=== PATIENT | female | born 1965 | race Caucasian/White ===

== ENCOUNTER 2018-07-30 10:41 | Emergency (ER) | payer MEDICAID, SELFPAY ==
[2018-07-30 10:44] VITALS: BP 165/81; PULSE 78; RESP 16; TEMP 36.4; O2SAT 99; BMI 23.6
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
--- NOTE | 2018-07-30 11:22 | RAD_ITS ---
STUDY: X-RAY - RIGHT KNEE REASON FOR EXAM: Female, 53 years old. Chronic pain. History of blood. TECHNIQUE: 4 view(s) of the knee. COMPARISON: Comparison is made with prior study May 03, 2017. FINDINGS: Degenerative changes with spurring of the lateral femoral condyle. Degenerative spurring along the anterior aspect of the distal femur. Spurring of the lateral tibial plateau. Normal proximal tibiofibular articulation. Normal medial femorotibial compartment. There is severe degenerative arthrosis of the lateral femorotibial compartment with severe joint space narrowing. There is severe degenerative arthrosis of the patellofemoral articulation. The patella is surgically absent. Moderate sized joint effusion. RAD/Knee 4 or More Views IMPRESSION: Degenerative arthrosis. Joint effusion. Electronically Signed: Waldemar Arce, at 12:36 EDT , Service support ,
[2018-07-30 12:28] VITALS: BP 108/74; PULSE 62; RESP 15; O2SAT 98
== END 2018-07-30 12:29 | disposition home or self-care (01) ==
PROVIDERS: Emergency Provider Emergency Medicine
DX: M17.11 Unilateral primary osteoarthritis, right knee (principal); G89.29 Other chronic pain; K21.9 Gastro-esophageal reflux disease without esophagitis; Z87.891 Personal history of nicotine dependence
CPT/HCPCS: 73564; 99282

== ENCOUNTER 2018-09-15 13:36 | Emergency (ER) | payer MEDICAID, SELFPAY ==
[2018-08-15 12:27] VITALS: BMI 23.6
[2018-09-15 13:38] VITALS: BP 142/88; PULSE 102; RESP 18; TEMP 36.6; O2SAT 97; BMI 22.8
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
[2018-09-15 15:36] VITALS: BP 143/89; PULSE 99; RESP 17
== END 2018-09-15 15:42 | disposition home or self-care (01) ==
PROVIDERS: Emergency Provider Emergency Medicine
DX: M25.561 Pain in right knee (principal); G89.29 Other chronic pain; K21.9 Gastro-esophageal reflux disease without esophagitis; Z79.899 Other long term (current) drug therapy
CPT/HCPCS: 99282

== ENCOUNTER 2018-10-06 08:40 | Inpatient (IN) | payer MEDICAID, SELFPAY ==
[2018-10-06 08:41] VITALS: BP 144/102; PULSE 111; RESP 18; TEMP 36.1; O2SAT 94; BMI 21.9
--- NOTE | 2018-10-06 09:25 | ED.DCSUM_ITS ---
- ER Visit Summary Date of Service: 10/06/18 Chief Complaint: Alcohol withdrawal History of Present Illness: The patient is a 53 F who states that she is an alcoholic. She reports drinking at least a sixpack to 12 pack of beer per day. She is been doing this for 3 years. States she was last sober 3 years ago when she stayed at a snf house for 3 months. She states that she is tired of feeling ill. Her last drink was last evening at approximately 2000 hours. Patient states this morning she had vomiting and nausea headache shakes fast heartbeat and anxiety. She denies any hallucinations either auditory or visual. She feels itchy. Patient cannot really identify any one particular reason that made her seek detox today other than she is tired of feeling poorly. She denies any street drugs. Physical Examination: Afebrile vital signs are stable noted heart rate of 111 Gen: Well-nourished well-developed Head: Normocephalic atraumatic Eyes: Perrl EOMI ENT: TMs clear no rhinorrhea moist mucous membranes Neck: Supple no lymphadenopathy no JVD nontender CVS: Regular rate tachycardic rhythm no murmurs normal S1-S2 Respiratory: No distress clear to auscultation bilaterally chest nontender Abdomen: Soft nontender nondistended normal bowel sounds no masses Back: Nontender Extremity: Nontender no edema Skin: Normal color no rash Neuro: alert orientated ?3 CN II-XII intact normal strength sensation reflexes gait cerebellar patient has a tremor Psych: Tearful at times denies suicidal ideation Emergency Department Course and Treatment: Patient's CIWA-Ar score was 25. I discussed the patient with [facility] who began to see the patient in the emergency department. They find the patient appropriate for the program. Dr. Santa from the hospital service will be admitting. Impression: 1. Acute alcohol withdrawal This note was generated with [employer] dictation software. It may contain incorrect words, spelling, and punctuation that were not noted in review of the chart prior to signing ED Disposition - Plan for ED Patient: Referrals: Jennifer Addison MD [Primary Care Provider] -
--- NOTE | 2018-10-06 10:03 | NURSING ---
DR VEGA FOR DR QUEZADA
--- NOTE | 2018-10-06 10:04 | HP.PCM_ITS ---
Problem List (1) Alcohol withdrawal delirium, acute, mixed level of activity Status: Acute (2) Tobacco use Status: Chronic (3) Brain aneurysm Status: Chronic (4) ETOH abuse Status: Chronic History of Present Illness Date of Admission: 10/06/18 Chief Complaint: Acute EtOH Withdrawal The patient is a 53 y/o F w/ PMHx: GERD, Tobacco use, Hx Brain aneurysm s/p clipping (not MRI compatible), EtOH Abuse who presents to the [facility] on 10/06/18 w/ noted acute EtOH withdrawal, onset starting 10/06/18 following last EtOH intake ~8 pm the evening prior w/ normal intake 6-12 beers at least daily with onset of nausea, tremors, agitation, tactile disturbances. She notes that she has never willingly transitioned to an acute rehabilitation program until this presentation. Patient interested in attaining sober status. Patient also notes recent 1 to 2 weeks of postnasal drip, congestion, some mild rhinorrhea and throat irritation without fever or chills associated. upon ED presentation work- up included CIWA 25, tremors evident, tachycardic, nauseated with tactile hallucinations per discussion with patient. No regimen nor labs obtained in the ED, discussed regimen with ED physician with planned librium taper upon transition to [place]. Past Medical History Past Medical History (Chronic Problems): Chronic Problems Tobacco use (Chronic) Brain aneurysm (Chronic) ETOH abuse (Chronic) Allergies ibuprofen Adverse Reaction (Verified 10/06/18 08:44) BAD STOMACH STATES I'M NOT SUPPOSED TO TAKE IT Home Medications: Ambulatory Orders Medication Instructions Recorded Multivitamin/Iron/Folic Acid 1 tab PO DAILY 10/06/18 [Centrum Women Tablet] Pantoprazole Sodium [Protonix] 40 mg PO DAILY 10/06/18 Surgical History: - - Brain aneurysm clipping, ventral hernia repair, several right knee surgeries. Psychiatric History: No pertinent psych hx ORGANIZATIONAL CONSULTANT History: No pertinent ORGANIZATIONAL CONSULTANT history Lives: Roommate Smoking Status: Current every day smoker - 1 pack/day cigarette tobacco usage. Tobacco Use: Cigarettes Alcohol: Heavy - At least 6 to 12 pack/day beer, denies liquor, denies any concurrent illicit other drug usage. Drugs: None - *Family History Maternal History Items: - - Patient notes a maternal family history of colon cancer. Paternal History Items: - - Patient notes a paternal family history of heart disease. Review of Systems Constitutional: Reports: Anorexia, Malaise, Weakness, Fatigue. Denies: Chills, Fever, Weight Change HEENT: Reports: Post Nasal Drip, Sinus Congestion, Sinus Drainage, Sore Throat. Denies: Head Aches Cardiovascular: Denies: Chest Pain, Palpitations Respiratory: Denies: Cough, Shortness of breath at rest, Sputum production Gastrointestinal: Denies: Abdominal Pain, Nausea, Vomiting Genitourinary: Denies: Dysuria Musculoskeletal: Reports: Back Pain, Joint Pain. Denies: Joint Tenderness Skin: Denies: Rash, Wounds Neurological: Reports: Tremor, - - Tactile hallucinations.. Denies: Focal weakness, Numbness, Tingling Psychiatric: Denies: Anxiety, Depression, Homicidal Ideations, Suicidal Ideations Hematologic/ Lymphatic: Denies: Easy Bruising, Easy Bleeding VTE Information - Inpt Only VTE Present on Admission: No VTE Mechan Device Prophylaxis: SCD's VTE Pharm Prophylaxis ordered?: Yes Patient Problems: Active and Suspected Problems Alcohol withdrawal delirium, acute, mixed level of activity (Acute) Subjective: Seated upright in the bed, fatigued appearance, tremors evident, mildly agitated. Objective: Physical Examination: General: awake, alert, oriented x 3/4, remains cooperative, seated upright in in the bed, tremors evident, mildly agitated, awaiting Librium taper initiation. Skin: normal color, turgor, no icterus, cyanosis. HEENT: AT/NC, EOMI, PERRLA, dry MM, no carotid bruits or JVD noted, posterior OP with mild erythema, no exudated, not post-nasal drip. Lungs: CTA bilaterally, moderate effort, moderate decrease BL bases, no rales, ronchi or wheezing. Heart: Mildly tachycardic with regular rhythm; no gallop, rub audible. Abdomen: soft, NTTP, ND, normal BS, + HM. Extremities: no cyanosis, clubbing, or edema. Neurological: patient awake, alert, oriented as noted; cognitive function suspect mildly reduced from baseline; pupils equally reactive to light and accomodation; cranial nerves II-XII grossly normal, moving all 4 extremities, no focal deficits, strength moderately to severely global decrease secondary to acute alcohol withdrawal presentation, tremors evident. Psychiatric: affect appears mildly agitated, no acute evidence of depressive or anxiety feelings. - Physical Exam Vital Signs Temp Pulse Resp BP Pulse Ox 97.0 F L 111 H 18 144/102 H 94 10/06/18 08:41 10/06/18 08:41 10/06/18 08:41 10/06/18 08:41 10/06/18 08:41 Oxygen Delivery Method Room Air Weight: 144 lb 2.917 oz Body Mass Index (BMI) 21.9 Assessment/Plan All Active Problems Alcohol withdrawal delirium, acute, mixed level of activity (Acute) The patient is a 53 y/o F w/ PMHx: GERD, Tobacco use, Hx Brain aneurysm s/p clipping, EtOH Abuse who presents to the [facility] on 10/06/18 w/ noted acute EtOH withdrawal, onset starting 10/06/18 following last EtOH intake ~8 pm the evening prior. (1) Acute EtOH Withdrawal: Will admit to [facility] on telemetry, obtain routine labs including CBC, CMP, urine for drug screen, EtOH level, will initiate and continue on [facility] service protocol with taper course of librium, as needed Catapres, Bentyl, Vistaril, IV fluids, IV antiemetics, Tylenol as needed for pain. Once patient clinically improved and completion of taper nearing will plan [facility] assistance for transition to next level of rehabilitation care. Mag, phos pending. Maintain on CIWA protocol. (2) Mild URI, Possible Allergic Rhinitis w/ Post-nasal drip: Notes congestion, mild rhinorrhea and congestion with post-nasal drip, will add ocean nasal spray, claritin and flonase. (3) Tobacco Abuse: Encouraged cessation, inpatient consultation per RT, NR if desired. (4) Hx Brain aneurysm: s/p clipping, not MRI compatible. (5) GERD: PPI. (6) DVT Prophylaxis: SCDs, lovenox. Code Visit Inpatient E&M: 94570 Init Hosp L3
--- NOTE | 2018-10-06 10:09 | NURSING ---
314 ALCOHOL WITHDRAWAL WHITE
[2018-10-06 11:10] VITALS: BP 116/78; PULSE 89; RESP 16; RESP 18; TEMP 37.1; O2SAT 99; BMI 21.5
[2018-10-06] MEDS: Methocarbamol 750 MG Tablet PO ×2 (11:27→18:31)
[2018-10-06] MEDS: Loratadine 10 MG Tablet PO (11:27)
[2018-10-06] MEDS: chlordiazePOXIDE 25 MG Capsule PO ×3 (11:27→23:04)
[2018-10-06] MEDS: hydrOXYzine PAM 25 MG Capsule 50 MG PO ×2 (11:28→18:31)
[2018-10-06] MEDS: Lactated Ringers 1,000 ML 125 ML IV (11:42)
[2018-10-06 11:43] LABS: Absolute Lymphocyte Count 1.36 X10^3/ul (0.83-4.51); Absolute Neutrophil Count 3.9 X10^3/uL (2.0-7.7); Basophil# 0.01 X10^3/uL; Basophil% 0.2 % (0-1); Eosinophil# 0.01 X10^3/uL; Eosinophils% 0.2 % (0-5); Hematocrit 42.5 % (37-47); Hemoglobin 14.8 g/dl (12.0-15.0); International Normalized Ratio 0.9; Lymphocyte # 1.36 X10^3/ul (4.0); Lymphocyte % 22.7 % (19-41); Mean Corp Hgb Conc 34.8 g/gl (32-36); Mean Corpuscular Hgb 34.3 pg (27.0-32.0); Mean Corpuscular Volume 98.6 fL (81-99); Mean Platelet Vol. 10.2 fl (6.2-12.0); Monocyte# 0.66 X10^3/uL; Neutrophil # 3.94 X10^3/uL (2.7-7.7); Neutrophil % 65.9 % (47-70); Platelet Count 214 K/mm3 (150-450); Prothrombin Time (Protime)PT. 12.3 SECONDS (11.7-14.9); RBC Distribution Width CV 14.5 % (11.6-14.6); RBC Distribution Width SD 52.4 fl (35.1-43.9); Red Blood Count 4.31 M/mm3 (4.2-5.4)
[2018-10-06 11:45] LABS: POSITIVE COUNT NO; POSITIVE DIFFERENTIAL NO; POSITIVE MORPHOLOGY NO
[2018-10-06 11:50] LABS: Internal QC Validated? YES +Cl - CLEAR BKGD; Pregnancy, Serum, hCG Quali. NEGATIVE Negative
[2018-10-06 11:52] LABS: AST(SGOT) 28 U/L (15-37); Alanine Aminotransfer ALT/SGPT 18 U/L (13-56); Albumin, Serum 3.9 g/dL (3.2-5.0); Alkaline Phosphatase 81 U/L (45-117); Anion Gap 8 (5-15); BUN 5 mg/dL (7-18); BUN/Creat Ratio 8.8 RATIO (10-20); Calcium,Total 9.2 mg/dL (8.5-10.1); Chloride 104 mmol/L (98-107); Creatinine, Serum 0.57 mg/dL (0.55-1.02); EST Glomerular Filtration Rate 118 mL/min (>60); Est Glom Filt Rate - Afr Amer 142 mL/min (>60); Estimated Creatinine Clearance 113.82 ml/min; Globulin 3.8 g/dL (2.2-4.2); Glucose 85 mg/dL (74-106); Lipase 124 U/L (73-393); Magnesium 1.8 mg/dL (1.6-2.6); Phosphorus 3.3 mg/dL (2.5-4.9); Protein, Total 7.7 g/dL (6.4-8.2); Sodium Level 138 mmol/L (136-145)
[2018-10-06 12:01] LABS: Bedside Glucose 136 mg/dL (70-110)
[2018-10-06] MEDS: Sodium Chloride 0.65% 1 SPRAY SPRAY.BTL 2 SPRAY NASAL ×2 (13:33→21:45)
[2018-10-06] MEDS: Fluticasone 0.05% 1 SPRAY NASAL.SRY NASAL ×2 (13:35→21:45)
[2018-10-06] MEDS: LORazepam 2 MG/ML Syringe 1 MG IV (13:41)
[2018-10-06 14:41] LABS: Amphetamine Urine VISTA NEGATIVE (<1000 ng/mL); Barbiturate Urine VISTA NEGATIVE (< 200 ng/mL); Benzodiazepine Urine VISTA NEGATIVE (< 200 ng/mL); Cocaine Urine VISTA NEGATIVE (< 300 ng/mL); Ecstacy Urine VISTA NEGATIVE (< 500 ng/mL); Methadone Urine VISTA NEGATIVE (< 300 ng/mL); PCP Urine VISTA NEGATIVE (< 25 ng/mL); THC Urine VISTA NEGATIVE (< 50 ng/mL); Vista UDS pH Range 6
[2018-10-06 15:40] VITALS: BP 118/74; PULSE 106; RESP 18; TEMP 37.1
[2018-10-06] MEDS: Loperamide 2 MG Capsule PO (15:44)
[2018-10-06] MEDS: Ondansetron ODT 4 MG Tablet PO ×2 (15:44→21:48)
[2018-10-06] MEDS: Dicyclomine 10 MG Capsule 20 MG PO (15:45)
[2018-10-06] MEDS: Acetaminophen 500 MG Tablet PO ×2 (15:45→20:02)
--- NOTE | 2018-10-06 16:29 | CHAPLAIN ---
Type of Pastoral Visit _x__ Initial Visit ___ Follow-up Visit ___ On-call Visit ___ General Patient Visit ___ Spiritual Assessment ___ Family Conference ___ Bereavement ___ Rapid Response ___ Code Blue ___ Other (describe below) Pastoral Care Referral From _x__ Patient ___ Family ___ Nurse ___ Physician ___ Automatic Die Cutting Machine Operator ___ Clutch Operator ___ Other (describe below) Sacrament/Intervention _x__ Active listening ___ Anointing ___ Orthodox ___ Bereavement ___ Communion ___ Emy exploration ___ ___ Life review _x__ Prayer ___ Reconciliation ___ Sacrament of Sick ___ Supportive presence ___ Wedding ___ Other (describe below) Pastoral Comments
[2018-10-06 21:39] VITALS: BP 114/69; PULSE 85; RESP 18; TEMP 37; O2SAT 97
[2018-10-06] MEDS: traZODone 50 MG Tablet PO (21:45)
[2018-10-07 02:01] VITALS: BP 125/80; PULSE 73; RESP 14; TEMP 36.7
[2018-10-07 05:20] VITALS: BP 117/80; PULSE 82; RESP 18; TEMP 36.6
[2018-10-07] MEDS: chlordiazePOXIDE 25 MG Capsule PO ×3 (05:26→20:51)
[2018-10-07] MEDS: Methocarbamol 750 MG Tablet PO ×3 (05:26→23:59)
[2018-10-07] MEDS: Acetaminophen 500 MG Tablet PO (05:27)
[2018-10-07] MEDS: Ondansetron ODT 4 MG Tablet PO (05:27)
[2018-10-07 09:05] VITALS: BP 109/71; PULSE 85; RESP 18; TEMP 36.6
[2018-10-07] MEDS: Enoxaparin 40 MG/0.4 ML Syringe SC (09:08)
[2018-10-07] MEDS: Pantoprazole Sodium 40 MG Tablet PO (09:08)
[2018-10-07] MEDS: Loratadine 10 MG Tablet PO (09:08)
[2018-10-07] MEDS: Folic Acid 1 MG Tablet PO (09:08)
[2018-10-07] MEDS: Multivitamins,Therapeutic Tablet 1 TABLET PO (09:08)
[2018-10-07] MEDS: Thiamine Hydrochloride 100 MG Tablet PO (09:08)
[2018-10-07] MEDS: Sodium Chloride 0.65% 1 SPRAY SPRAY.BTL 2 SPRAY NASAL ×2 (09:09→22:34)
[2018-10-07] MEDS: Fluticasone 0.05% 1 SPRAY NASAL.SRY NASAL ×2 (09:09→22:35)
[2018-10-07] MEDS: Ibuprofen 600 MG Tablet PO ×2 (09:12→20:51)
[2018-10-07] MEDS: hydrOXYzine PAM 25 MG Capsule 50 MG PO ×3 (09:12→23:59)
[2018-10-07] MEDS: 0.9% NaCl Peripheral Flush Adult/Peds IV ×3 (09:13→17:29)
--- NOTE | 2018-10-07 10:07 | PCM.PN.HOSP ---
Patient Problems: Active and Suspected Problems Alcohol withdrawal delirium, acute, mixed level of activity (Acute) Subjective: Patient notes that she is improved as far as alcohol withdrawal symptoms with no further tremors, improved energy, no hallucinations. She does state that her lower back has been hurting worse over the last day and she does have chronic back issues but is attempted to be up and walking and has not had relief with Tylenol or ibuprofen. Discussed options and amenable to Toradol trial. Patient denies fevers, chills, nausea, emesis, abdominal pain, chest pain or dyspnea. Objective: Physical Examination: General: awake, alert, oriented x 4, cooperative, seated upright in in the bed, improved appearance from day prior, no tremors, calm. Skin: normal color, turgor, no icterus, cyanosis. HEENT: AT/NC, EOMI, PERRLA, improved MMM, less congested sounding, notes some improvement to URI type symptoms. Lungs: CTA bilaterally, moderate effort, moderate decrease BL bases, no rales, ronchi or wheezing. Heart: Regular rate with regular rhythm; no gallop, rub audible. Abdomen: soft, NTTP, ND, normal BS. Extremities: no cyanosis, clubbing, or edema, despite lumbar back discomfort, moving with ease. Neurological: patient awake, alert, oriented as noted; cognitive function improved, suspect now baseline; pupils equally reactive to light and accomodation; cranial nerves II-XII grossly normal, moving all 4 extremities, no focal deficits, strength improved, mildly to moderately global decrease secondary to acute alcohol withdrawal presentation. Psychiatric: affect appears improved, normal, no acute evidence of depressive or anxiety feelings. Vitals/I&O's: Vital Signs Temp Pulse Resp BP Pulse Ox 97.8 F 85 18 109/71 97 10/07/18 09:05 10/07/18 09:05 10/07/18 09:05 10/07/18 09:05 10/06/18 21:39 Oxygen Delivery Method Room Air Weight: 141 lb 12.116 oz Body Mass Index (BMI) 21.5 Intake and Output for Last 24 Hours 10/05/18 10/06/18 10/07/18 23:59 23:59 23:59 Intake Total 1212 / 1212 1554 / 1554 Balance 1212 / 1212 1554 / 1554 Laboratory Results 10/06/18 11:18: WBC 6.0, RBC 4.31, Hgb 14.8, Hct 42.5, MCV 98.6, MCH 34.3 H, MCHC 34.8, RDW 14.5, RDW Differential 52.4 H, Plt Count 214, MPV 10.2, Immature Gran % (Auto) 0.000, Neut % (Auto) 65.9, Lymph % (Auto) 22.7, Edgar % (Auto) 11.0 H, Eos % (Auto) 0.2, Baso % (Auto) 0.2, Absolute Neuts (auto) 3.9, Absolute Lymphs (auto) 1.36, Total Counted Not Reportable 10/06/18 11:18: PT 12.3, INR 0.9 10/06/18 11:18: Sodium 138, Potassium 4.0, Chloride 104, Carbon Dioxide 26.0, Anion Gap 8, BUN 5 L, Creatinine 0.57, Estim Creat Clear Calc 113.82, Est GFR (MDRD) Af Amer 142, Est GFR (MDRD) Non-Af 118, BUN/Creatinine Ratio 8.8 L, Glucose 85, Calcium 9.2, Phosphorus 3.3, Magnesium 1.8, Total Bilirubin 0.30, AST 28, ALT 18, Alkaline Phosphatase 81, Total Protein 7.7, Albumin 3.9, Globulin 3.8, Albumin/Globulin Ratio 1.0, Lipase 124 10/06/18 11:18: Ethyl Alcohol 15.0 10/06/18 11:18: Serum , Qual NEGATIVE 10/06/18 11:35: Urine Opiates Screen NEGATIVE, Urine Methadone Screen NEGATIVE, Ur Barbiturates Screen NEGATIVE, Ur Phencyclidine Scrn NEGATIVE, Ur Amphetamines Screen NEGATIVE, U Methamphetamin-MDMA NEGATIVE, U Benzodiazepines Scrn NEGATIVE, Urine Cocaine Screen NEGATIVE, U Cannabinoids Screen NEGATIVE, Ur Drug Screen Comment 10/06/18 11:40: POC Glucose 136 H Current Medications Acetaminophen (Tylenol) 500 mg PO Q4H PRN PRN PRN Reason: Temp > 100.4 F Last Admin: 10/07/18 05:27 Dose: 500 mg Al Hydroxide/Mg Hydroxide (Mylanta Ii) 30 ml PO Q6H PRN PRN PRN Reason: dyspesia Albuterol Sulfate (Ventolin Aerosols) 2.5 mg INHALATION Q2H PRN PRN PRN Reason: dyspnea, wheezing Bisacodyl (Dulcolax) 10 mg RECTAL DAILY PRN PRN Reason: Constipation Chlordiazepoxide (Librium) 50 mg PO Q8H [facility], [facility]; Taper Stop: 10/09/18 13:29 Last Admin: 10/07/18 05:26 Dose: 50 mg Dextrose (D50w Syringe) 0 gm IV X1 PRN; Protocol PRN Reason: Hypoglycemia Dicyclomine HCl (Bentyl) 20 mg PO Q6H PRN PRN PRN Reason: abdominal discomfort Last Admin: 10/06/18 15:45 Dose: 20 mg Enoxaparin Sodium (Lovenox) 40 mg SC DAILY@1000 BARBARA Last Admin: 10/07/18 09:08 Dose: 40 mg Fluticasone Propionate (Flonase Nasal [place]) 1 spray NASAL BID [facility], [facility]1983 Last Admin: 10/07/18 09:09 Dose: 1 spray Folic Acid (Folic Acid) 1 mg PO DAILYCM [facility], [facility]1983 Stop: 10/09/18 08:01 Last Admin: 10/07/18 09:08 Dose: 1 mg Glucagon () 1 mg IM .X1 PRN PRN Reason: Hypoglycemia Hydroxyzine Pamoate (Vistaril Pamoate Capsule) 50 mg PO Q6H PRN PRN PRN Reason: Mild Anxiety (score 1/3) Last Admin: 10/07/18 09:12 Dose: 50 mg Ibuprofen (Motrin) 600 mg PO Q8H PRN PRN PRN Reason: Mild-Moderate Pain (1-5/10) Last Admin: 10/07/18 09:12 Dose: 600 mg Loperamide HCl (Imodium) 2 - 4 mg PO UD PRN PRN Reason: LOOSE STOOLS Last Admin: 10/06/18 15:44 Dose: 2 mg Loratadine (Claritin) 10 mg PO DAILY [facility] Last Admin: 10/07/18 09:08 Dose: 10 mg Lorazepam (Ativan) 1 mg IV Q4H PRN PRN PRN Reason: Severe Anxiety Last Admin: 10/06/18 13:41 Dose: 1 mg Lorazepam (Ativan) 2 mg IV X1 PRN PRN Reason: Seizure Methocarbamol (Methocarbamol) 750 mg PO Q6H PRN PRN PRN Reason: Muscle Aches Last Admin: 10/07/18 05:26 Dose: 750 mg [facility]it[facility] ([facility]itamin) [facility] Last Admin: 10/07/18 09:08 Dose: 1 tablet Nicotine (Nicoderm Cq (Pbkc)) 21 mg TRANSDERM. DAILY [facility] Last Admin: 10/07/18 09:09 Dose: 21 mg Nutritional Formula (Lactose Free) (Ensure Enlive) 120 ml PO 4X/DAY [facility] Last Admin: 10/07/18 09:10 Dose: 120 ml Ondansetron HCl (Zofran Odt) 4 mg PO Q6H PRN PRN PRN Reason: NAUSEA Last Admin: 10/07/18 05:27 Dose: 4 mg Pantoprazole Sodium (Protonix) 40 mg PO DAILY [facility] Last Admin: 10/07/18 09:08 Dose: 40 mg Senna (Senokot) 1 tablet PO QHS PRN PRN PRN Reason: Constipation Sodium Chloride ([place] Nasal [place]) 2 spray NASAL BID [facility] Last Admin: 10/07/18 09:09 Dose: 2 spray Sodium Chloride () 5 - 15 ml IV UD PRN PRN Reason: SALINE FLUSH Last Admin: 10/07/18 09:13 Dose: 10 ml Thiamine HCl (Vitamin B1) [facility] Stop: 10/09/18 08:01 Last Admin: 10/07/18 09:08 Dose: 100 mg Trazodone HCl (Desyrel) 50 mg PO QHS [facility] Last Admin: 10/06/18 21:45 Dose: 50 mg Medical Necessity - Tobacco Use Smoking Status: Current every day smoker - 1 pack/day cigarette tobacco usage. Tobacco Use: Cigarettes Assessment/Plan All Active Problems Alcohol withdrawal delirium, acute, mixed level of activity (Acute) The patient is a 53 y/o F w/ PMHx: GERD, Tobacco use, Hx Brain aneurysm s/p clipping, EtOH Abuse who presents to the [facility] on 10/06/18 w/ noted acute EtOH withdrawal, onset starting 10/06/18 following last EtOH intake ~8 pm the evening prior. (1) Acute EtOH Withdrawal: Admitted to [place] on telemetry, routine labs obtained with unremarkable CBC, unremarkable CMP, magnesium and phosphorus levels appropriate, negative testing, normal lipase, negative UDS, alcohol level 15. Patient initiated and continue on [facility] service protocol with taper course of librium, as needed Catapres, Bentyl, Vistaril, IV fluids, IV antiemetics, Tylenol as needed for pain. Once patient clinically improved and completion of taper nearing will plan [facility] assistance for transition to next level of rehabilitation care. Maintain on CICT protocol. (2) ? Mild URI, Possible Allergic Rhinitis w/ Post-nasal drip: Noted mild rhinorrhea and congestion upon presentation with post-nasal drip, added ocean nasal spray, claritin and flonase. Mild improvement, will continue. (3) Acute on Chronic Lumbar Back Pain, Mild: Walking in the halls, notes not markedly improved w/ tylenol or IBU. Will hold IBU and trial toradol. (4) Tobacco Abuse: Encouraged cessation, inpatient consultation per RT, NR if desired. (5) Hx Brain aneurysm: s/p clipping, not MRI compatible. (6) GERD: PPI. (7) DVT Prophylaxis: SCDs, lovenox. Code Visit Inpatient E&M: 05930 Subs Hosp L2
[2018-10-07 12:19] VITALS: BP 135/73; PULSE 91; RESP 16; TEMP 36.9
[2018-10-07] MEDS: Ketorolac 30 MG/ML Syringe IV ×3 (12:22→23:59)
[2018-10-07 17:26] VITALS: BP 131/70; PULSE 80; RESP 14; TEMP 36.6
[2018-10-07 20:37] VITALS: BP 128/69; PULSE 78; RESP 16; TEMP 36.4
[2018-10-07] MEDS: traZODone 50 MG Tablet PO (22:35)
[2018-10-07] MEDS: Loperamide 2 MG Capsule PO (22:36)
[2018-10-07] MEDS: Dicyclomine 10 MG Capsule 20 MG PO (23:59)
[2018-10-08 02:37] VITALS: BP 133/71; PULSE 71; RESP 16; TEMP 36.4
[2018-10-08] MEDS: chlordiazePOXIDE 25 MG Capsule PO ×2 (05:36→12:55)
[2018-10-08] MEDS: Ibuprofen 600 MG Tablet PO (06:31)
[2018-10-08] MEDS: hydrOXYzine PAM 25 MG Capsule 50 MG PO (06:32)
[2018-10-08] MEDS: Dicyclomine 10 MG Capsule 20 MG PO (06:32)
[2018-10-08] MEDS: Methocarbamol 750 MG Tablet PO ×2 (06:32→12:55)
[2018-10-08 09:29] VITALS: BP 103/52; PULSE 82; RESP 18; TEMP 36.8
[2018-10-08] MEDS: Sodium Chloride 0.65% 1 SPRAY SPRAY.BTL 2 SPRAY NASAL (09:33)
[2018-10-08] MEDS: Fluticasone 0.05% 1 SPRAY NASAL.SRY NASAL (09:33)
[2018-10-08] MEDS: Multivitamins,Therapeutic Tablet 1 TABLET PO (09:34)
[2018-10-08] MEDS: Folic Acid 1 MG Tablet PO (09:34)
[2018-10-08] MEDS: Enoxaparin 40 MG/0.4 ML Syringe SC (09:34)
[2018-10-08] MEDS: Thiamine Hydrochloride 100 MG Tablet PO (09:34)
[2018-10-08] MEDS: Pantoprazole Sodium 40 MG Tablet PO (09:34)
[2018-10-08] MEDS: Loratadine 10 MG Tablet PO (09:34)
--- NOTE | 2018-10-08 11:14 | PCM.PN.HOSP ---
Patient Problems: Active and Suspected Problems Alcohol withdrawal delirium, acute, mixed level of activity (Acute) Subjective: Patient with no acute events overnight per self and per nursing report however still having lumbar back discomfort which she states started prior to coming in but it is worsened. She is moving in the bed but does seem slightly encumbered but not severely uncomfortable. All alcohol withdrawal symptoms have resolved. Patient denies fevers, chills, nausea, emesis, abdominal pain, chest pain or dyspnea. Objective: Physical Examination: General: awake, alert, oriented x 4, cooperative, seated upright in in the bed, no acute distress. Skin: normal color, turgor, no icterus, cyanosis. HEENT: AT/NC, EOMI, PERRLA, improved MMM, URI symptoms nearly resolved. Lungs: CTA bilaterally, moderate effort, moderate decrease BL bases, no rales, ronchi or wheezing. Heart: Regular rate with regular rhythm; no gallop, rub audible. Abdomen: soft, NTTP, ND, normal BS. Extremities: no cyanosis, clubbing, or edema, despite lumbar back discomfort, mild discomfort with bilateral paraspinous regions as well as in the back. Neurological: patient awake, alert, oriented as noted; cognitive function improved, suspect now baseline; pupils equally reactive to light and accomodation; cranial nerves II-XII grossly normal, moving all 4 extremities, no focal deficits, strength improved, mildly to moderately global decrease secondary to acute alcohol withdrawal presentation. Psychiatric: affect appears improved, normal, no acute evidence of depressive or anxiety feelings. Vitals/I&O's: Vital Signs Temp Pulse Resp BP Pulse Ox 98.3 F 82 18 103/52 L 97 10/08/18 09:29 10/08/18 09:29 10/08/18 09:29 10/08/18 09:29 10/06/18 21:39 Oxygen Delivery Method Room Air Weight: 141 lb 12.116 oz Body Mass Index (BMI) 21.5 Intake and Output for Last 24 Hours 10/06/18 10/07/18 10/08/18 23:59 23:59 23:59 Intake Total 1212 / 1212 2954 / 2954 600 / 600 Balance 1212 / 1212 2954 / 2954 600 / 600 Current Medications Acetaminophen (Tylenol) 500 mg PO Q4H PRN PRN PRN Reason: Temp > 100.4 F Last Admin: 10/07/18 05:27 Dose: 500 mg Al Hydroxide/Mg Hydroxide (Mylanta Ii) 30 ml PO Q6H PRN PRN PRN Reason: dyspesia Albuterol Sulfate (Ventolin Aerosols) 2.5 mg INHALATION Q2H PRN PRN PRN Reason: dyspnea, wheezing Bisacodyl (Dulcolax) 10 mg RECTAL DAILY PRN PRN Reason: Constipation Chlordiazepoxide (Librium) 50 mg PO Q8H [facility]; Taper Stop: 10/09/18 13:29 Last Admin: 10/08/18 05:36 Dose: 50 mg Dextrose (D50w Syringe) 0 gm IV X1 PRN; Protocol PRN Reason: Hypoglycemia Dicyclomine HCl (Bentyl) 20 mg PO Q6H PRN PRN PRN Reason: abdominal discomfort Last Admin: 10/08/18 06:32 Dose: 20 mg Enoxaparin Sodium (Lovenox) 40 mg SC DAILY@1000 BARBARA Last Admin: 10/08/18 09:34 Dose: 40 mg Fluticasone Propionate (Flonase Nasal [place]) 1 spray NASAL BID [facility] Last Admin: 10/08/18 09:33 Dose: 1 spray Folic Acid (Folic Acid) 1 mg PO DAILYCM [facility] Stop: 10/09/18 08:01 Last Admin: 10/08/18 09:34 Dose: 1 mg Glucagon () 1 mg IM .X1 PRN PRN Reason: Hypoglycemia Hydroxyzine Pamoate (Vistaril Pamoate Capsule) 50 mg PO Q6H PRN PRN PRN Reason: Mild Anxiety (score 1/3) Last Admin: 10/08/18 06:32 Dose: 50 mg Ibuprofen (Motrin) 600 mg PO Q8H PRN PRN PRN Reason: Mild-Moderate Pain (1-5/10) Last Admin: 10/08/18 06:31 Dose: 600 mg Loperamide HCl (Imodium) 2 - 4 mg PO UD PRN PRN Reason: LOOSE STOOLS Last Admin: 10/07/18 22:36 Dose: 2 mg Loratadine (Claritin) 10 mg PO DAILY [facility] Last Admin: 10/08/18 09:34 Dose: 10 mg Lorazepam (Ativan) 1 mg IV Q4H PRN PRN PRN Reason: Severe Anxiety Last Admin: 10/06/18 13:41 Dose: 1 mg Lorazepam (Ativan) 2 mg IV X1 PRN PRN Reason: Seizure Methocarbamol (Methocarbamol) 750 mg PO Q6H PRN PRN PRN Reason: Muscle Aches Last Admin: 10/08/18 06:32 Dose: 750 mg [facility]it[facility] ([facility]amin) [facility] Last Admin: 10/08/18 09:34 Dose: 1 tablet Nicotine (Nicoderm Cq (Pbkc)) 21 mg TRANSDERM. DAILY [facility] Last Admin: 10/08/18 09:35 Dose: 21 mg Nutritional Formula (Lactose Free) (Ensure Enlive) 120 ml PO 4X/DAY [facility] Last Admin: 10/08/18 09:34 Dose: 120 ml Ondansetron HCl (Zofran Odt) 4 mg PO Q6H PRN PRN PRN Reason: NAUSEA Last Admin: 10/07/18 05:27 Dose: 4 mg Pantoprazole Sodium (Protonix) 40 mg PO DAILY [facility] Last Admin: 10/08/18 09:34 Dose: 40 mg Senna (Senokot) 1 tablet PO QHS PRN PRN PRN Reason: Constipation Sodium Chloride ([place] Nasal [place]) 2 spray NASAL BID [facility] Last Admin: 10/08/18 09:33 Dose: 2 spray Sodium Chloride () 5 - 15 ml IV UD PRN PRN Reason: SALINE FLUSH Last Admin: 10/08/18 00:00 Dose: 10 ml Thiamine HCl (Vitamin B1) [facility] Stop: 10/09/18 08:01 Last Admin: 10/08/18 09:34 Dose: 100 mg Trazodone HCl (Desyrel) 50 mg PO QHS [facility] Last Admin: 10/07/18 22:35 Dose: 50 mg Medical Necessity - Tobacco Use Smoking Status: Current every day smoker - 1 pack/day cigarette tobacco usage. Tobacco Use: Cigarettes Assessment/Plan All Active Problems Alcohol withdrawal delirium, acute, mixed level of activity (Acute) The patient is a 53 y/o F w/ PMHx: GERD, Tobacco use, Hx Brain aneurysm s/p clipping, EtOH Abuse who presents to the [facility] on 10/06/18 w/ noted acute EtOH withdrawal, onset starting 10/06/18 following last EtOH intake ~8 pm the evening prior. (1) Acute EtOH Withdrawal: Admitted to [facility] on telemetry, routine labs obtained with unremarkable CBC, unremarkable CMP, magnesium and phosphorus levels appropriate, negative testing, normal lipase, negative UDS, alcohol level 15. Patient initiated and continue on [facility] service protocol with taper course of librium, as needed Catapres, Bentyl, Vistaril, IV fluids, IV antiemetics, Tylenol as needed for pain. Maintain on CIWA protocol. Plan discharge to home with the [facility] next [facility]hab care in a.m. following last taper dosing. (2) ? Mild URI, Possible Allergic Rhinitis w/ Post-nasal drip: Noted mild rhinorrhea and congestion upon presentation with post-nasal drip, added ocean nasal spray, claritin and flonase. Resolving. (3) Acute on Chronic Lumbar Back Pain, Mild: Walking in the halls, notes not markedly improved w/ tylenol or IBU. Administered Toradol, will give burst prednisone which she notes is helped in the past. (4) Tobacco Abuse: Encouraged cessation, inpatient consultation per RT, NR if desired. (5) Hx Brain aneurysm: s/p clipping, not MRI compatible. (6) GERD: PPI. (7) DVT Prophylaxis: SCDs, lovenox. Code Visit Inpatient E&M: 26323 Subs Hosp L2
--- NOTE | 2018-10-08 11:17 | PN_ITS ---
Patient Problems: Active and Suspected Problems Alcohol withdrawal delirium, acute, mixed level of activity (Acute) Subjective: Patient with no acute events overnight per self and per nursing report however still having lumbar back discomfort which she states started prior to coming in but it is worsened. She is moving in the bed but does seem slightly encumbered but not severely uncomfortable. All alcohol withdrawal symptoms have resolved. Patient denies fevers, chills, nausea, emesis, abdominal pain, chest pain or dyspnea. Objective: Physical Examination: General: awake, alert, oriented x 4, cooperative, seated upright in in the bed, no acute distress. Skin: normal color, turgor, no icterus, cyanosis. HEENT: AT/NC, EOMI, PERRLA, improved MMM, URI symptoms nearly resolved. Lungs: CTA bilaterally, moderate effort, moderate decrease BL bases, no rales, ronchi or wheezing. Heart: Regular rate with regular rhythm; no gallop, rub audible. Abdomen: soft, NTTP, ND, normal BS. Extremities: no cyanosis, clubbing, or edema, despite lumbar back discomfort, mild discomfort with bilateral paraspinous regions as well as in the back. Neurological: patient awake, alert, oriented as noted; cognitive function improved, suspect now baseline; pupils equally reactive to light and accomodation; cranial nerves II-XII grossly normal, moving all 4 extremities, no focal deficits, strength improved, mildly to moderately global decrease secondary to acute alcohol withdrawal presentation. Psychiatric: affect appears improved, normal, no acute evidence of depressive or anxiety feelings. Vitals/I&O's: Vital Signs Temp Pulse Resp BP Pulse Ox 98.3 F 82 18 103/52 L 97 10/08/18 09:29 10/08/18 09:29 10/08/18 09:29 10/08/18 09:29 10/06/18 21:39 Oxygen Delivery Method Room Air Weight: 141 lb 12.116 oz Body Mass Index (BMI) 21.5 Intake and Output for Last 24 Hours 10/06/18 10/07/18 10/08/18 23:59 23:59 23:59 Intake Total 1212 / 1212 2954 / 2954 600 / 600 Balance 1212 / 1212 2954 / 2954 600 / 600 Current Medications Acetaminophen (Tylenol) 500 mg PO Q4H PRN PRN PRN Reason: Temp > 100.4 F Last Admin: 10/07/18 05:27 Dose: 500 mg Al Hydroxide/Mg Hydroxide (Mylanta Ii) 30 ml PO Q6H PRN PRN PRN Reason: dyspesia Albuterol Sulfate (Ventolin Aerosols) 2.5 mg INHALATION Q2H PRN PRN PRN Reason: dyspnea, wheezing Bisacodyl (Dulcolax) 10 mg RECTAL DAILY PRN PRN Reason: Constipation Chlordiazepoxide (Librium) 50 mg PO Q8H [facility]; Taper Stop: 10/09/18 13:29 Last Admin: 10/08/18 05:36 Dose: 50 mg Dextrose (D50w Syringe) 0 gm IV X1 PRN; Protocol PRN Reason: Hypoglycemia Dicyclomine HCl (Bentyl) 20 mg PO Q6H PRN PRN PRN Reason: abdominal discomfort Last Admin: 10/08/18 06:32 Dose: 20 mg Enoxaparin Sodium (Lovenox) 40 mg SC DAILY@1000 BARBARA Last Admin: 10/08/18 09:34 Dose: 40 mg Fluticasone Propionate (Flonase Nasal [place]) 1 spray NASAL BID [facility] Last Admin: 10/08/18 09:33 Dose: 1 spray Folic Acid (Folic Acid) 1 mg PO DAILYCM [facility] Stop: 10/09/18 08:01 Last Admin: 10/08/18 09:34 Dose: 1 mg Glucagon () 1 mg IM .X1 PRN PRN Reason: Hypoglycemia Hydroxyzine Pamoate (Vistaril Pamoate Capsule) 50 mg PO Q6H PRN PRN PRN Reason: Mild Anxiety (score 1/3) Last Admin: 10/08/18 06:32 Dose: 50 mg Ibuprofen (Motrin) 600 mg PO Q8H PRN PRN PRN Reason: Mild-Moderate Pain (1-5/10) Last Admin: 10/08/18 06:31 Dose: 600 mg Loperamide HCl (Imodium) 2 - 4 mg PO UD PRN PRN Reason: LOOSE STOOLS Last Admin: 10/07/18 22:36 Dose: 2 mg Loratadine (Claritin) 10 mg PO DAILY [facility] Last Admin: 10/08/18 09:34 Dose: 10 mg Lorazepam (Ativan) 1 mg IV Q4H PRN PRN PRN Reason: Severe Anxiety Last Admin: 10/06/18 13:41 Dose: 1 mg Lorazepam (Ativan) 2 mg IV X1 PRN PRN Reason: Seizure Methocarbamol (Methocarbamol) 750 mg PO Q6H PRN PRN PRN Reason: Muscle Aches Last Admin: 10/08/18 06:32 Dose: 750 mg [facility]it[facility] ([facility]amin) [facility] Last Admin: 10/08/18 09:34 Dose: 1 tablet Nicotine (Nicoderm Cq (Pbkc)) 21 mg TRANSDERM. DAILY [facility] Last Admin: 10/08/18 09:35 Dose: 21 mg Nutritional Formula (Lactose Free) (Ensure Enlive) 120 ml PO 4X/DAY [facility] Last Admin: 10/08/18 09:34 Dose: 120 ml Ondansetron HCl (Zofran Odt) 4 mg PO Q6H PRN PRN PRN Reason: NAUSEA Last Admin: 10/07/18 05:27 Dose: 4 mg Pantoprazole Sodium (Protonix) 40 mg PO DAILY [facility] Last Admin: 10/08/18 09:34 Dose: 40 mg Senna (Senokot) 1 tablet PO QHS PRN PRN PRN Reason: Constipation Sodium Chloride ([place] Nasal [place]) 2 spray NASAL BID [facility] Last Admin: 10/08/18 09:33 Dose: 2 spray Sodium Chloride () 5 - 15 ml IV UD PRN PRN Reason: SALINE FLUSH Last Admin: 10/08/18 00:00 Dose: 10 ml Thiamine HCl (Vitamin B1) [facility] Stop: 10/09/18 08:01 Last Admin: 10/08/18 09:34 Dose: 100 mg Trazodone HCl (Desyrel) 50 mg PO QHS [facility] Last Admin: 10/07/18 22:35 Dose: 50 mg Medical Necessity - Tobacco Use Smoking Status: Current every day smoker - 1 pack/day cigarette tobacco usage. Tobacco Use: Cigarettes Assessment/Plan All Active Problems Alcohol withdrawal delirium, acute, mixed level of activity (Acute) The patient is a 53 y/o F w/ PMHx: GERD, Tobacco use, Hx Brain aneurysm s/p clipping, EtOH Abuse who presents to the [facility] on 10/06/18 w/ noted acute EtOH withdrawal, onset starting 10/06/18 following last EtOH intake ~8 pm the evening prior. (1) Acute EtOH Withdrawal: Admitted to [facility] on telemetry, routine labs obtained with unremarkable CBC, unremarkable CMP, magnesium and phosphorus levels appropriate, negative testing, normal lipase, negative UDS, alcohol level 15. Patient initiated and continue on [facility] service protocol with taper course of librium, as needed Catapres, Bentyl, Vistaril, IV fluids, IV antiemetics, Tylenol as needed for pain. Maintain on CIWA protocol. Plan discharge to home with the [facility] next [facility] rehab care in a.m. following last taper dosing. (2) ? Mild URI, Possible Allergic Rhinitis w/ Post-nasal drip: Noted mild rhinorrhea and congestion upon presentation with post-nasal drip, added ocean nasal spray, claritin and flonase. Resolving. (3) Acute on Chronic Lumbar Back Pain, Mild: Walking in the halls, notes not markedly improved w/ tylenol or IBU. Administered Toradol, will give burst prednisone which she notes is helped in the past. (4) Tobacco Abuse: Encouraged cessation, inpatient consultation per RT, NR if desired. (5) Hx Brain aneurysm: s/p clipping, not MRI compatible. (6) GERD: PPI. (7) DVT Prophylaxis: SCDs, lovenox. Code Visit Inpatient E&M: 44877 Subs Hosp L2
--- NOTE | 2018-10-08 11:49 | NEWVISION ---
Patient was offered a bed at [facility] but has refused as well as other inpatient rehabilitation options reporting that it is due to pending knee surgery restricting her flexibility. Patient has appointment at [facility] group at 10am on 10/14/2018 with Abi her current counselor.
[2018-10-08 12:55] VITALS: BP 113/66; PULSE 79; RESP 16; TEMP 36.6
[2018-10-08] MEDS: 0.9% NaCl Peripheral Flush Adult/Peds IV ×2 (12:55)
[2018-10-08] MEDS: predniSONE 20 MG Tablet 40 MG PO (12:55)
--- NOTE | 2018-10-08 15:33 | NURSING ---
Patient came out to desk, fully clothed in street clothes. Requesting to leave. Patient educated on leaving AMA and that she could complete the program tomorrow 10/09. Patient verbalized that she did not wish to continue in the program. When asked why, the patient stated she had an appt tomorrow morning she did not want to miss.
--- NOTE | 2018-10-08 16:30 | PCM.DC.SUM ---
Discharge Date and Diagnosis Date of Admission: 10/06/18 Date of Discharge: 10/08/18 - Primary Discharge Diagnosis (1) Acute EtOH Withdrawal (2) Mild URI, Possible Allergic Rhinitis w/ Post-nasal drip (3) Acute on Chronic Lumbar Back Pain, Mild (4) Tobacco Abuse (5) Hx Brain aneurysm s/p clipping (not MRI compatible) (6) GERD - Secondary Discharge Diagnosis Chronic Problems Tobacco use (Chronic) Brain aneurysm (Chronic) ETOH abuse (Chronic) Hospital Course and Treatment Operations: None Procedures: None Summary of Care Provided: The patient is a 53 y/o F w/ PMHx: GERD, Tobacco use, Hx Brain aneurysm s/p clipping, EtOH Abuse who presented to the [facility] on 10/06/18 w/ noted acute EtOH withdrawal, onset starting 10/06/18 following last EtOH intake ~8 pm the evening prior. Admitted to [place] on telemetry, routine labs obtained with unremarkable CBC, unremarkable CMP, magnesium and phosphorus levels appropriate, negative testing, normal lipase, negative UDS, alcohol level 15. Patient initiated and continued on [facility] service protocol with taper course of librium, as needed Catapres, Bentyl, Vistaril, IV fluids, IV antiemetics, Tylenol as needed for pain. Maintained on CIOH protocol. Noted mild rhinorrhea and congestion upon presentation with post-nasal drip, added ocean nasal spray, claritin and flonase with improvement. Also, during admission noted acute on chronic lumbar back pain, not improved w/ tylenol or IBU, administered toradol with some improvement as well as burst steroid regimen. Planned discharge to home with the [facility] next level of rehab care 10/09/18 AM following last taper dosing; however, on 10/08/18 afternoon patient left AMA despite encouragement to remain to complete treatment. - Physical Exam Vital Signs Temp Pulse Resp BP Pulse Ox 97.8 F 79 16 113/66 97 10/08/18 12:55 10/08/18 12:55 10/08/18 12:55 10/08/18 12:55 10/06/18 21:39 Oxygen Delivery Method Room Air Weight: 141 lb 12.116 oz Body Mass Index (BMI) 21.5 Intake and Output for Last 24 Hours 10/06/18 10/07/18 10/08/18 23:59 23:59 23:59 Intake Total 1212 / 1212 2954 / 2954 1200 / 1200 Balance 1212 / 1212 2954 / 2954 1200 / 1200 Home Medications: Medications to take at Discharge Multivitamin/Iron/Folic Acid [Centrum Women Tablet] 1 tab PO DAILY 10/06/18 Pantoprazole Sodium [Protonix] 40 mg PO DAILY 10/06/18 Primary Care Physician: Jennifer Addison MD [Primary Care Provider] - Disposition: Home Minutes spent on discharge:: 35 Patient Condition:: Fair Medical Necessity - Tobacco Use Smoking Status: Current every day smoker - 1 pack/day cigarette tobacco usage. Tobacco Use: Cigarettes Meaningful Use Info Meaningful Use Diagnoses (Choose all that apply): None applicable Code Visit Inpatient E&M: 13772 Disch Hosp
--- NOTE | 2018-10-08 16:34 | DS.PCM_ITS ---
Discharge Date and Diagnosis Date of Admission: 10/06/18 Date of Discharge: 10/08/18 - Primary Discharge Diagnosis (1) Acute EtOH Withdrawal (2) Mild URI, Possible Allergic Rhinitis w/ Post-nasal drip (3) Acute on Chronic Lumbar Back Pain, Mild (4) Tobacco Abuse (5) Hx Brain aneurysm s/p clipping (not MRI compatible) (6) GERD - Secondary Discharge Diagnosis Chronic Problems Tobacco use (Chronic) Brain aneurysm (Chronic) ETOH abuse (Chronic) Hospital Course and Treatment Operations: None Procedures: None Summary of Care Provided: The patient is a 53 y/o F w/ PMHx: GERD, Tobacco use, Hx Brain aneurysm s/p clipping, EtOH Abuse who presented to the [facility] on 10/06/18 w/ noted acute EtOH withdrawal, onset starting 10/06/18 following last EtOH intake ~8 pm the evening prior. Admitted to [place] on telemetry, routine labs obtained with unremarkable CBC, unremarkable CMP, magnesium and phosphorus levels appropriate, negative testing, normal lipase, negative UDS, alcohol level 15. Patient initiated and continued on [facility] service protocol with taper course of librium, as needed Catapres, Bentyl, Vistaril, IV fluids, IV antiemetics, Tylenol as needed for pain. Maintained on CINJ protocol. Noted mild rhinorrhea and congestion upon presentation with post-nasal drip, added ocean nasal spray, claritin and flonase with improvement. Also, during admission noted acute on chronic lumbar back pain, not improved w/ tylenol or IBU, administered toradol with some improvement as well as burst steroid regimen. Planned discharge to home with the [facility] next level of rehab care 10/09/18 AM following last taper dosing; however, on 10/08/18 afternoon patient left AMA despite encouragement to remain to complete treatment. - Physical Exam Vital Signs Temp Pulse Resp BP Pulse Ox 97.8 F 79 16 113/66 97 10/08/18 12:55 10/08/18 12:55 10/08/18 12:55 10/08/18 12:55 10/06/18 21:39 Oxygen Delivery Method Room Air Weight: 141 lb 12.116 oz Body Mass Index (BMI) 21.5 Intake and Output for Last 24 Hours 10/06/18 10/07/18 10/08/18 23:59 23:59 23:59 Intake Total 1212 / 1212 2954 / 2954 1200 / 1200 Balance 1212 / 1212 2954 / 2954 1200 / 1200 Home Medications: Medications to take at Discharge Multivitamin/Iron/Folic Acid [Centrum Women Tablet] 1 tab PO DAILY 10/06/18 Pantoprazole Sodium [Protonix] 40 mg PO DAILY 10/06/18 Primary Care Physician: Jennifer Addison MD [Primary Care Provider] - Disposition: Home Minutes spent on discharge:: 35 Patient Condition:: Fair Medical Necessity - Tobacco Use Smoking Status: Current every day smoker - 1 pack/day cigarette tobacco usage. Tobacco Use: Cigarettes Meaningful Use Info Meaningful Use Diagnoses (Choose all that apply): None applicable Code Visit Inpatient E&M: 74973 Disch Hosp
== END 2018-10-08 15:35 | disposition left against medical advice (07) | DRG 770 ==
LOC: ED 09:09 → MS3 10:22
PROVIDERS: Admitting Provider Family Medicine; Emergency Provider Emergency Medicine; Family Provider Internal Medicine; PCP Internal Medicine; Visit Provider Family Medicine
DX: F10.231 Alcohol dependence with withdrawal delirium (principal); Y90.0 Blood alcohol level of less than 20 mg/100 ml; J06.9 Acute upper respiratory infection, unspecified; M54.5 Low back pain; G89.29 Other chronic pain; K21.9 Gastro-esophageal reflux disease without esophagitis; F17.210 Nicotine dependence, cigarettes, uncomplicated; Z79.899 Other long term (current) drug therapy; Z86.79 Personal history of other diseases of the circulatory system
CPT/HCPCS: 80053; 80307; 80320; 82962; 83690; 83735; 84100; 84703; 85025; 85610; 97802; J7120; A4216; G0480

== ENCOUNTER 2018-10-24 17:19 | Emergency (ER) | payer MEDICAID, SELFPAY ==
[2018-10-06 11:10] VITALS: BMI 21.5
[2018-10-24 17:20] VITALS: BP 139/84; PULSE 97; RESP 16; TEMP 36.4; O2SAT 97; BMI 22.6
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
[2018-10-24] MEDS: Morphine 4 MG/ML Syringe IM (19:21)
[2018-10-24 19:24] VITALS: BP 136/82; PULSE 78; RESP 16; O2SAT 97
== END 2018-10-24 19:26 | disposition home or self-care (01) ==
LOC: ED 19:20
PROVIDERS: Emergency Provider Emergency Medicine; Family Provider Internal Medicine; PCP Internal Medicine
DX: M25.561 Pain in right knee (principal); G89.29 Other chronic pain; R20.2 Paresthesia of skin; K21.9 Gastro-esophageal reflux disease without esophagitis; Z72.0 Tobacco use; Z79.899 Other long term (current) drug therapy
CPT/HCPCS: 96372; 99283

== ENCOUNTER → 2018-11-05 10:49 | Outpatient (CLI) | payer MEDICAID, SELFPAY ==
[2018-10-24 17:20] VITALS: BMI 22.6
--- NOTE | 2018-11-05 11:00 | RAD_ITS ---
HISTORY: PRE OP FOR KNEE REPLACEMENT EXAM: XR Chest 2 Views: COMPARISON: None FINDINGS: # of images incl. paperwork: 2 Lungs are clear. Heart is not enlarged. Bones are normal. Pulmonary vascularity is distinct. No effusions. RAD/Chest PA and Lateral IMPRESSION: Normal. at 0021 Reported and signed by: Juancho Gonzalez MD Electronically Signed: Juancho Gonzalez MD at 0:20 EDT Tel , Service support ,
--- NOTE | 2018-11-05 11:02 | EKG12_ITS ---
Test Reason : PRE-OP Blood Pressure : / mmHG Vent. Rate : 080 BPM Atrial Rate : 080 BPM P-R Int : 168 ms QRS Dur : 082 ms QT Int : 374 ms P-R-T Axes : 067 -07 064 degrees QTc Int : 431 ms Normal sinus rhythm with sinus arrhythmia Normal ECG Confirmed by RENETTA FELIX, MARY ([id number]), dictionary editor FARRAH DODGE ([id number]) on 11/10/2018 9:57:12 AM Referred By: Mark Howell Confirmed By:MARY JACKSON MD
== END ==
PROVIDERS: Family Provider Internal Medicine; PCP Internal Medicine; Referring Provider Orthopaedic Surgery; Visit Provider Orthopaedic Surgery
DX: Z01.810 Encounter for preprocedural cardiovascular examination (principal); Z01.811 Encounter for preprocedural respiratory examination
CPT/HCPCS: 71046; 93005

== ENCOUNTER 2018-11-05 17:58 | Emergency (ER) | payer MEDICAID, SELFPAY ==
[2018-11-05 17:59] VITALS: BP 141/79; PULSE 91; RESP 18; TEMP 36.8; O2SAT 97; BMI 22.9
--- NOTE | 2018-11-05 18:10 | ED.DCSUM_ITS ---
- ER Visit Summary Date of Service: 11/05/18 Chief Complaint: [Right knee pain] History of Present Illness: The patient is a 53 F [the emergency department with right knee pain that she is had for years. Patient states that she is having exacerbation of her chronic pain. Patient is currently awaiting a right total knee replacement however the company is making a custom knee for her and it will be 6 weeks before she can have it replaced with Dr. Mark Howell. Patient denies any new injury. She denies any fevers. Patient says she is been walking a lot lately. Patient does not want any prescriptions for narcotics for home and just wants a pain shot to help with the acute pain.] Physical Examination: [HEENT-PERRLA, EOMI. Cranial nerves II through XII grossly intact. TMs clear. Mucous membranes moist. No adenopathy. Cardiovascular-regular rate and rhythm without murmur or ectopy Lungs-clear to auscultation, chest wall stable without crepitus or subcu emphysema Abdomen-normoactive bowel sounds, soft, nontender, no rebound or rigidity, no peritoneal signs. Extremities-intact ?4, normal range of motion, normal pulses, atraumatic. Right knee-patient does not have a patella secondary to prior surgery. Patient has no effusion noted. There is no erythema or warmth. Patient has limited range of motion in flexion extension secondary to pain and bony degenerative changes. She is neurovascular intact distally.] Test Results: [None indicated] Emergency Department Course and Treatment: [I did look at the patient's oars report and she is only had one prescription for narcotics in the last year. Patient was given a dose of morphine 6 mg IM as well as Zofran 4 mg IM.] I did review patient's x-rays were just performed several weeks ago of the right knee which showed significant degenerative changes does appear that patient has essentially cele-gt-bchs in the knee compartment. Treatment Plan: [Follow-up with orthopedics] Disposition: [Discharged home in stable condition] Impression: [Acute exacerbation of chronic knee pain.] This note was generated with [employer] Commerceation software. It may contain incorrect words, spelling, and punctuation that were not noted in review of the chart prior to signing ED Disposition - Plan for ED Patient: Referrals: Jennifer Addison MD [Primary Care Provider] -
--- NOTE | 2018-11-05 18:12 | ED.DEP ---
ED Disposition - Plan for ED Patient: Instructions: KNEE PAIN, Uncertain Cause Referrals: Jennifer Addison MD [Primary Care Provider] - Mark Howell MD [STAFF PHYSICIAN] - As Needed
[2018-11-05] MEDS: morphine 8 MG/ML Syringe 6 MG IM (18:27)
[2018-11-05] MEDS: Ondansetron 4 MG/2 ML Vial IM (18:27)
[2018-11-05 18:53] VITALS: BP 136/89; PULSE 84; RESP 16; O2SAT 96
== END 2018-11-05 18:54 | disposition home or self-care (01) ==
PROVIDERS: Emergency Provider Emergency Medicine; Family Provider Internal Medicine; PCP Internal Medicine
DX: M25.561 Pain in right knee (principal); G89.29 Other chronic pain; Z72.0 Tobacco use; Z79.899 Other long term (current) drug therapy; Z01.810 Encounter for preprocedural cardiovascular examination; Z01.811 Encounter for preprocedural respiratory examination
CPT/HCPCS: 71046; 93005; 96372; 99282; J2405

== ENCOUNTER 2018-11-14 17:31 | Emergency (ER) | payer MEDICAID, SELFPAY ==
[2018-11-14 17:32] VITALS: BP 145/78; PULSE 97; RESP 15; TEMP 36.7; O2SAT 97; BMI 22.8
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
[2018-11-14] MEDS: Ondansetron ODT 4 MG Tablet PO (18:32)
[2018-11-14] MEDS: morphine 8 MG/ML Syringe SC (18:33)
[2018-11-14 19:17] VITALS: BP 141/77; PULSE 77; RESP 18; O2SAT 95
== END 2018-11-14 19:19 | disposition home or self-care (01) ==
PROVIDERS: Emergency Provider Emergency Medicine; Family Provider Internal Medicine; PCP Internal Medicine
DX: M17.11 Unilateral primary osteoarthritis, right knee (principal); G89.29 Other chronic pain; Z79.899 Other long term (current) drug therapy
CPT/HCPCS: 96372; 99284

== ENCOUNTER 2018-11-22 14:29 | Emergency (ER) | payer MEDICAID, SELFPAY ==
[2018-11-22 14:30] VITALS: BP 112/70; PULSE 87; RESP 16; TEMP 36.9; O2SAT 98; BMI 23.0
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
[2018-11-22] MEDS: Morphine 4 MG/ML Syringe 8 MG IM (15:03)
[2018-11-22] MEDS: Orphenadrine 60 MG/2 ML Ampul IM (15:03)
== END 2018-11-22 15:20 | disposition home or self-care (01) ==
LOC: ED 15:12
PROVIDERS: Emergency Provider Emergency Medicine; Family Provider Internal Medicine; PCP Internal Medicine
DX: M12.9 Arthropathy, unspecified (principal); M25.561 Pain in right knee; G89.29 Other chronic pain; F17.200 Nicotine dependence, unspecified, uncomplicated
CPT/HCPCS: 96372; 99282

== ENCOUNTER 2018-12-03 16:17 | Emergency (ER) | payer MEDICAID, SELFPAY ==
[2018-12-03 16:18] VITALS: BP 114/83; PULSE 118; RESP 18; TEMP 36.1; O2SAT 99; BMI 24.3
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
--- NOTE | 2018-12-03 16:34 | ED.DEP ---
ED Disposition - Plan for ED Patient: Instructions: KNEE PAIN, Uncertain Cause Prescriptions: cycloBENZAPRine HCl [Flexeril] 10 mg PO TID PRN #20 tab PRN Reason: Muscle Spasm Prescription Printed Referrals: Jennifer Addison MD [Primary Care Provider] - Mrak Howell MD [STAFF PHYSICIAN] - 5-7 Days
[2018-12-03] MEDS: cycloBENZAPRine HCl 10 MG Tablet PO (16:51)
[2018-12-03] MEDS: Morphine 4 MG/ML Syringe IM (16:51)
[2018-12-03] MEDS: Ondansetron 4 MG/2 ML Vial IM (16:52)
== END 2018-12-03 17:19 | disposition home or self-care (01) ==
LOC: ED 16:44
PROVIDERS: Emergency Provider Emergency Medicine; Family Provider Internal Medicine; PCP Internal Medicine
DX: M25.561 Pain in right knee (principal); G89.29 Other chronic pain; Z72.0 Tobacco use; Z79.899 Other long term (current) drug therapy
CPT/HCPCS: 96372; 99283; A4216; J2405

== ENCOUNTER 2019-01-13 19:29 | Emergency (ER) | payer MEDICAID, SELFPAY ==
[2019-01-13 19:31] VITALS: BP 121/75; PULSE 102; RESP 17; TEMP 36.1; O2SAT 98; BMI 25.2
--- NOTE | 2019-01-13 19:39 | ED.VIS.GEN ---
History of Present Illness Chief Complaint: Upper Extremity Injury Informant: Patient Onset: Weeks Context: Gradual Onset Timing: Intermittent Current Severity: Moderate Maximum Severity: Moderate Narrative: The patient presents to the emergency department with atraumatic right wrist pain. She states she been having it for the past month. She saw her primary care who diagnosed her with carpal tunnel. She was written a prescription for a brace, but her insurance would not cover it. She is scheduled to follow-up with Dr. Howell, orthopedist, but cannot be seen for 2 weeks. She states when she wakes in the morning, her hand will be numb, mostly in the first 3 digits. She denies any weakness. She states she is been taking Tylenol with little improvement. Prior similar symptoms: No Recent Illness/Hospitalization: No Past Medical History - Allergies and Home Meds Allergies/Adverse Reactions: Allergies ibuprofen Adverse Reaction (Verified 01/13/19 19:30) BAD STOMACH STATES I'M NOT SUPPOSED TO TAKE IT Primary Care Physician: Jennifer Addison MD [Primary Care Provider] - Prior records reviewed: Yes Past Medical History: - Surgical History: - - Brain aneurysm clipping, ventral hernia repair, several right knee surgeries. Smoking Status: Current every day smoker - Family History Maternal Family History: Reports: - - Patient notes a maternal family history of colon cancer. Paternal Family History: Reports: - - Patient notes a paternal family history of heart disease. Review of Systems General: Denies: Chills, Fever, Sweats Eyes: Denies: Visual changes - bilaterally, Diplopia ENT: Denies: Rhinorrhea, Sore throat Cardiovascular: Denies: Chest pain, Palpitations Respiratory: Denies: Dyspnea, Cough, Dyspnea on exertion Gastrointestinal: Denies: Abdominal pain, Nausea, Vomiting, Diarrhea, Melena, Hematochezia Genitourinary: Denies: Dysuria, Hematuria, Frequency Musculoskeletal: Reports: Arthralgias. Denies: Back pain, Extremity Pain Skin: Denies: Rash, Wounds Neurological: Denies: Headache, Weakness, Numbness Physical Exam Vital Signs/Narrative: Vital Signs Temp Pulse Resp BP Pulse Ox 01/13/19 19:31 96.9 F L 102 H 17 121/75 H 98 Inital Vital Signs reviewed: Yes General: Well nourished, Well developed, No Acute Distress Head: Normocephalic, Atraumatic Eyes: Perrl, EOMI ENT: Moist mucous membranes, No rhinorrhea Neck: Supple, Nontender Cardiovascular: Regular rate, Regular rhythm, No murmurs Respiratory: No distress, CTA bilaterally, Chest nontender Abdomen: Soft, Nontender, Nondistended, Normal bowel sounds Back: Nontender, Normal Inspection Extremities: No edema, Tenderness - Tenderness of her right wrist. No erythema. 2+ radial ulnar pulses. Sensation preserved to light touch. Hyperflexion of the wrist re-creates symptoms. No weakness. Cap refill less than 2 seconds in the digits. Skin: Normal color, No rash Neurological: Alert, Oriented x3, Cranial nerves II-XII grossly intact, Normal Strength, Normal Sensation Psychological: Normal affect, Normal Mood Diagnostic/Tx/Re-eval - Medical Decision Making The patient has had no trauma. I do not feel radiology is necessary. Her wrist has normal pulses and sensation. Her compartments are soft. At this point, the patient was given a dose of analgesics in the emergency department. She will be placed in a Velcro wrist splint for comfort. She will be given a short course of prednisone and will follow up with orthopedics as scheduled. She is comfortable with this plan. Impression 1. Carpal tunnel right wrist ED Disposition - Plan for ED Patient: Instructions: Carpal Tunnel Prescriptions: Prednisone [Deltasone] 60 mg PO DAILY #15 tab Prescription Printed Referrals: Mark Howell MD [STAFF PHYSICIAN] -
[2019-01-13] MEDS: HYDROcodone Bitartrate/Apap 5/325 Tablet PO (19:48)
== END 2019-01-13 19:57 | disposition home or self-care (01) ==
LOC: ED 19:54
PROVIDERS: Emergency Provider Emergency Medicine; Family Provider Internal Medicine; PCP Internal Medicine
DX: G56.01 Carpal tunnel syndrome, right upper limb (principal); F17.200 Nicotine dependence, unspecified, uncomplicated; Z79.899 Other long term (current) drug therapy
CPT/HCPCS: 99283

== ENCOUNTER 2019-01-20 16:57 | Emergency (ER) | payer MEDICAID, SELFPAY ==
[2019-01-20 16:58] VITALS: BP 116/68; PULSE 118; RESP 16; TEMP 36.2; O2SAT 96; BMI 24.9
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
[2019-01-20] MEDS: Ketorolac 15 MG/ML Vial IM (18:04)
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
[2019-01-20] MEDS: Morphine 4 MG/ML Syringe IM (19:14)
[2019-01-20 19:19] VITALS: BP 119/73; PULSE 84; RESP 16; O2SAT 98
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
== END 2019-01-20 19:34 | disposition home or self-care (01) ==
PROVIDERS: Emergency Provider Emergency Medicine; Family Provider Internal Medicine; PCP Internal Medicine
DX: M25.561 Pain in right knee (principal); G89.29 Other chronic pain; F17.200 Nicotine dependence, unspecified, uncomplicated; Z88.6 Allergy status to analgesic agent; Z79.899 Other long term (current) drug therapy
CPT/HCPCS: 73564; 96372; 99282

== ENCOUNTER 2019-02-20 15:12 | Emergency (ER) | payer MEDICAID, SELFPAY ==
[2019-02-20 15:13] VITALS: BP 166/78; PULSE 98; RESP 16; TEMP 36.5; O2SAT 98; BMI 24.3
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
[2019-02-20] MEDS: morphine 8 MG/ML Syringe IM (15:42)
[2019-02-20 16:07] VITALS: BP 130/88; PULSE 91; RESP 16; O2SAT 98
== END 2019-02-20 16:07 | disposition home or self-care (01) ==
PROVIDERS: Emergency Provider Emergency Medicine; Family Provider Internal Medicine; PCP Internal Medicine
DX: M25.561 Pain in right knee (principal); G89.29 Other chronic pain; F17.200 Nicotine dependence, unspecified, uncomplicated; Z88.6 Allergy status to analgesic agent
CPT/HCPCS: 96372; 99282

== ENCOUNTER 2019-02-23 14:19 | Emergency (ER) | payer MEDICAID, SELFPAY ==
[2019-02-23 14:20] VITALS: BP 128/72; PULSE 83; RESP 18; TEMP 36.8; O2SAT 97; BMI 24.3
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
--- NOTE | 2019-02-23 16:27 | ED.RN ---
PT LEAVES PRIOR TO RECEIVING KENALOG INJECTION OR DISCHARGE INSTRUCTIONS. WITNESSED AMBULATING OUT OF DEPARTMENT.
== END 2019-02-23 16:28 | disposition home or self-care (01) ==
PROVIDERS: Emergency Provider Emergency Medicine; Family Provider Internal Medicine; PCP Internal Medicine
DX: M25.561 Pain in right knee (principal); M25.551 Pain in right hip; M54.5 Low back pain; G89.29 Other chronic pain; F17.200 Nicotine dependence, unspecified, uncomplicated; Z79.899 Other long term (current) drug therapy
CPT/HCPCS: 99281

== ENCOUNTER 2019-02-27 09:56 | Emergency (ER) | payer MEDICAID, SELFPAY ==
[2019-02-27 09:57] VITALS: BP 130/77; PULSE 86; RESP 18; TEMP 36.6; O2SAT 96; BMI 25.5
--- NOTE | 2019-02-27 10:22 | ED.DCSUM_ITS ---
- ER Visit Summary Date of Service: 02/27/19 Chief Complaint: Chronic right knee pain History of Present Illness: The patient is a [address] Mark Howell and Dr. Addison. She reports she is scheduled for a knee replacement on the right on April 13. She states that neither Dr. Russell or Mark Howell will prescribe her opiate medications. She is here for pain relief. Patient reports she has a sharp, burning pain is 10 out of 10 in severity. Is worsened by walking and movement. Is unrelieved by her gabapentin and Lodine. Denies any recent trauma. No fall, MVA, or change in activity. She denies any fever or chills. Physical Examination: Vitals: Stable. Afebrile. General: Well-nourished and well-developed. Head: Normocephalic atraumatic. Neck: Supple, no lymphadenopathy. No JVD. Nontender. Cardiovascular: Regular rate and rhythm. No murmurs. Respiratory: No respiratory distress. Clear to auscultation bilaterally. Abdominal: Soft, nontender, nondistended, normal bowel sounds. No guarding, rebound, or peritoneal signs. Back: Nontender. Extremities: There are chronic postsurgical changes with multiple scars that are present over her right knee. However, there is no erythema or warmth. She has full range of motion without any difficulty. The entire thing is moderately tender to palpation. There is no evidence of a septic joint. Skin: Normal color, no rash. Neurologic: Alert and oriented ?3. Cranial nerves II through XII are intact. Normal strength and sensation. Psych: Normal affect. Emergency Department Course and Treatment: I discussed the patient that we do not treat chronic pain in the emergency department. I offered her Toradol or Tylenol. She refused both of these. Treatment Plan: I suggested to the patient that she follow-up with pain management if opiate-based medications or what she needs for her chronic pain. She will be discharged instructed follow-up Dr. Greenfield soon as possible. Follow-up with Dr. Addison and/or Dr. Mark Howell for further treatment of her pain as well. Disposition: To home in improved and stable condition. Impression: 1. Chronic right knee pain. This note was generated with [employer] software. It may contain incorrect words, spelling, and punctuation that were not noted in review of the chart prior to signing ED Disposition - Plan for ED Patient: Disposition: Home or Assisted Living Instructions: ED Chronic Pain Referrals: Gurjit Bro MD [STAFF PHYSICIAN] - As soon as possible
== END 2019-02-27 10:35 | disposition home or self-care (01) ==
LOC: ED 10:28
PROVIDERS: Emergency Provider Emergency Medicine; Family Provider Internal Medicine; PCP Internal Medicine
DX: M25.561 Pain in right knee (principal); R11.0 Nausea; Z72.0 Tobacco use
CPT/HCPCS: 99282

== ENCOUNTER → 2019-03-25 14:14 | Outpatient (CLI) | payer MEDICAID, SELFPAY ==
[2019-02-23 14:20] VITALS: BMI 24.3
[2019-02-27 09:57] VITALS: BMI 25.5
--- NOTE | 2019-03-25 15:01 | NEURO_ITS ---
NCS and/or EMG Patient Report Ordering Doctor: Mark Howell DATE OF SERVICE: 03/25/19 Roula Spain is a 53-year-old female presents for electrodiagnostic testing of the right upper limb. She reports numbness and tingling in the right hand. Electrodiagnostic findings: Right median motor nerve demonstrates prolonged dis tracey latency with normal amplitude and conduction velocity. Right ulnar motor responses within normal limits. Normal right ulnar and median F-wave. Prolonged right median sensory latency at the wrist. On needle EMG, all muscles tested in the right upper limb showed no evidence of denervation with normal motor unit action potentials. Electrodiagnostic impression: This is an abnormal study. 1. Electrodiagnostic findings demonstrate right-sided median mononeuropathy. This is consistent with a moderate right carpal tunnel syndrome. If there are any further questions, please do not hesitate to contact me
== END ==
PROVIDERS: Family Provider Internal Medicine; PCP Internal Medicine; Referring Provider Physician Assistant; Visit Provider Physician Assistant
DX: M25.531 Pain in right wrist (principal); R20.2 Paresthesia of skin
CPT/HCPCS: 95886; 95910

== ENCOUNTER 2019-04-06 11:45 | Emergency (ER) | payer MEDICAID, SELFPAY ==
[2019-04-06 11:46] VITALS: BP 105/74; PULSE 99; RESP 16; TEMP 36.4; O2SAT 96; BMI 25.5
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
[2019-04-06] MEDS: Ondansetron 4 MG/2 ML Vial IM (12:59)
[2019-04-06] MEDS: morphine 8 MG/ML Syringe IM (12:59)
[2019-04-06 13:33] VITALS: BP 135/81; PULSE 77; RESP 18; O2SAT 97
--- NOTE | 2019-04-06 14:13 | DCINST.ED_ITS ---
ED Disposition - Plan for ED Patient: Disposition: Home or Assisted Living Diagnosis: Knee pain Instructions: Knee Sprain Prescriptions: Hydrocodone Bitart/Apap 5-325 [[place] 5MG-325MG] 1 tab PO Q4H PRN PRN 2 Days #10 tab PRN Reason: Pain Transmission Status: Received by [facility] #30 Hydrocodone Bitart/Apap 5-325 [[place] 5MG-325MG] 1 tablet PO Q4H PRN PRN 2 Days #10 tablet PRN Reason: Pain Transmission Status: Received by [facility] Referrals: Jennifer Addison MD [Primary Care Provider] - 3-5 Days
--- NOTE | 2019-04-06 14:13 | ED.DEP ---
ED Disposition - Plan for ED Patient: Disposition: Home or Assisted Living Diagnosis: Knee pain Instructions: Knee Sprain Prescriptions: Hydrocodone Bitart/Apap 5-325 [[place] 5MG-325MG] 1 tab PO Q4H PRN PRN 2 Days #10 tab PRN Reason: Pain Transmission Status: Received by [facility] [place] #30 Hydrocodone Bitart/Apap 5-325 [[place] 5MG-325MG] 1 tablet PO Q4H PRN PRN 2 Days #10 tablet PRN Reason: Pain Transmission Status: Received by [facility] Referrals: Jennifer Addison MD [Primary Care Provider] - 3-5 Days
--- NOTE | 2019-04-06 14:18 | NURSING ---
PT STATES SHE CAN NOT GET HER RX FROM [facility] D/T INSURANCE REASONS. ASKS FOR RX TO BE SENT TO [facility] IN [place]. THIS RN CALLED [facility] TO INFORM THEM THAT PT IS GETTING RX FILLED AT [facility] AND SHOULD NOT GET IT FILLED WITH THEM. SPOKE WITH PHARMACIST EVER AT [facility].
== END 2019-04-06 13:35 | disposition home or self-care (01) ==
PROVIDERS: Emergency Provider Emergency Medicine; Family Provider Internal Medicine; PCP Internal Medicine
DX: M25.561 Pain in right knee (principal); F17.200 Nicotine dependence, unspecified, uncomplicated; Z79.899 Other long term (current) drug therapy; Z88.6 Allergy status to analgesic agent
CPT/HCPCS: 96372; 99283; J2405

== ENCOUNTER 2019-04-26 12:51 | Emergency (ER) | payer MEDICAID, SELFPAY ==
[2019-04-26 12:51] VITALS: BP 126/90; PULSE 90; RESP 18; TEMP 36.4; O2SAT 98; BMI 24.3
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
--- NOTE | 2019-04-26 13:42 | ED.DEP ---
ED Disposition - Plan for ED Patient: Disposition: Home or Assisted Living Instructions: ED Chronic Pain Referrals: Jennifer Addison MD [Primary Care Provider] - As Needed Mark Howell MD [STAFF PHYSICIAN] - As soon as possible Additional Instructions: Ice to your knee. Tylenol Motrin for pain. Follow-up with orthopedic doctor you need to follow through and get the knee replacement surgery.
== END 2019-04-26 13:54 | disposition home or self-care (01) ==
LOC: ED 13:45
PROVIDERS: Emergency Provider Emergency Medicine; Family Provider Internal Medicine; PCP Internal Medicine
DX: M17.31 Unilateral post-traumatic osteoarthritis, right knee (principal); G89.29 Other chronic pain; Z76.5 Malingerer [conscious simulation]; F10.11 Alcohol abuse, in remission; K21.9 Gastro-esophageal reflux disease without esophagitis; Z72.0 Tobacco use
CPT/HCPCS: 99282

== ENCOUNTER 2019-08-03 08:59 | Emergency (ER) | payer MEDICAID, SELFPAY ==
[2019-08-03 09:00] VITALS: BP 117/90; PULSE 119; RESP 18; TEMP 36.7; O2SAT 97; BMI 23.4
--- NOTE | 2019-08-03 09:12 | CT_ITS ---
STUDY: CT ABDOMEN AND PELVIS WITH CONTRAST REASON FOR EXAM: Female, 54 years old. LLQ PAIN RADIATION DOSAGE (If Supplied By Facility): CTDIvol = ( 7.14 ) mGy, DLP = ( 509.59 ) mGycm TECHNIQUE: Transaxial images were obtained from the dome of the diaphragm to the symphysis pubis without oral contrast. Was administered. Sagittal and coronal images were reconstructed. Individualized dose optimization techniques were used for this CT. COMPARISON: None. FINDINGS: The visualized lung bases are unremarkable. The visualized portions of the heart are within normal limits. Mild dilatation of the central intrahepatic biliary ducts. The common bile duct is not dilated. Normal gallbladder and extrahepatic biliary system. Normal spleen. Normal pancreas. Normal bilateral adrenal glands. Normal right kidney. Normal left kidney. Normal visualized stomach. Findings suggestive of a duodenal diverticulum. Normal small intestine. Normal colon. The appendix is visualized and appears normal. There is diffuse atherosclerotic calcification of the abdominal aorta, without a demonstrated aneurysm. Normal inferior vena cava. Normal retroperitoneum. Normal urinary bladder. There is a small umbilical hernia containing fat. Disc space narrowing and degeneration at the L4-L5 and L5-S1 CT/Abdomen/Pelvis W IV Cont ONLY IMPRESSION: Sigmoid diverticulosis. 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 Electronically Signed: Waldemar Arce, at 10:49 EDT , Service support ,
--- NOTE | 2019-08-03 09:13 | ED.VIS.GI ---
History of Present Illness Chief Complaint: GI Bleed Informant: Patient - Abdominal Pain/Flank Pain Onset: Days - 2-3 Context: Gradual Onset Timing: Continuous - w/r/t lower abd pain Quality: Aching Location: LLQ Current Severity: Moderate Maximum Severity: Moderate Worsened by: Nothing Relieved by: Nothing - Nausea/Vomiting/Emesis GI Symptom: Nausea. Negative for: Vomiting - Diarrhea/Melena/Hematochezia GI Symptom: Hematochezia. Negative for: Diarrhea, Melena Stool Quality: - - darker blood, mixed in with otherwise normal-appearing stools Associated Symptoms: Negative for: Dysuria, Frequency, Hematuria, Urgency Narrative: Patient states she has a history of peptic ulcer disease and is chronically on Protonix for the last 4 or 5 years, she ran out recently, started having some blood in her stool and pain in her abdomen, she then bought Prilosec OTC and is now taking that but still having symptoms. Her abdominal pain is lower and more left lower quadrant. - Past Medical History (1) PUD (peptic ulcer disease) Status: Chronic (2) Brain aneurysm Status: Chronic (3) ETOH abuse Status: Suspected Past Medical History - Allergies and Home Meds Allergies/Adverse Reactions: Allergies ibuprofen Adverse Reaction (Verified 08/03/19 08:59) BAD STOMACH STATES I'M NOT SUPPOSED TO TAKE IT Primary Care Physician: Jennifer Addison MD [Primary Care Provider] - Surgical History: - - Brain aneurysm clipping, ventral hernia repair, several right knee surgeries. Lives: Spouse/ Significant Other Smoking Status: Current every day smoker - Family History Maternal Family History: Reports: - - Patient notes a maternal family history of colon cancer. Paternal Family History: Reports: - - Patient notes a paternal family history of heart disease. Review of Systems General: Denies: Chills, Fever, Sweats Eyes: Denies: Visual changes - bilaterally, Diplopia ENT: Denies: Rhinorrhea, Sore throat Cardiovascular: Denies: Chest pain, Palpitations Respiratory: Denies: Dyspnea, Cough, Dyspnea on exertion Gastrointestinal: Reports: Abdominal pain, Nausea, Hematochezia. Denies: Vomiting, Diarrhea, Melena Genitourinary: Denies: Dysuria, Hematuria, Frequency Musculoskeletal: Denies: Back pain, Swelling, Extremity Pain Skin: Denies: Rash, Wounds Neurological: Denies: Headache, Weakness, Numbness Physical Exam Vital Signs/Narrative: Vital Signs Temp Pulse Resp BP Pulse Ox 08/03/19 09:00 98.0 F 119 H 18 117/90 H 97 Inital Vital Signs reviewed: Yes General: Well nourished, Well developed, No Acute Distress Head: Normocephalic, Atraumatic Eyes: Perrl, EOMI ENT: Moist mucous membranes, No rhinorrhea Neck: Supple, Nontender, No lymphadenopathy Cardiovascular: Regular rate, Regular rhythm, No murmurs, Tachycardia Respiratory: No distress, CTA bilaterally, Chest nontender Abdomen: Soft, Nondistended, Normal bowel sounds, No masses, Tender - Mildly, left lower quadrant only. Otherwise benign.. Negative for: Guarding, Rebound tenderness, Pulsatile mass Back: Nontender, Normal Inspection. Negative for: CVA tenderness Extremities: Nontender, No edema. Negative for: Calf Tenderness Skin: Normal color, No rash, No Trauma Neurological: Alert, Oriented x3, Cranial nerves II-XII grossly intact, Normal Strength, Normal Sensation, Normal Gait Psychological: Normal affect, Normal Mood Diagnostic/Tx/Re-eval Impressions Abdomen/Pelvis CT 08/03/19 09:12 IMPRESSION: Sigmoid diverticulosis. 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 Electronically Signed: Waldemar Arce, at 10:49 EDT , Service support , 08/03/19 09:12 Abdomen/Pelvis W IV Cont ONLY [CT] Stat Laboratory Results 08/03/19 08/03/19 09:40 09:40 WBC 4.6 RBC 3.90 L Hgb 12.8 Hct 37.0 MCV 94.9 MCH 32.8 H MCHC 34.6 RDW Std Deviation 58.4 H RDW Coeff of Tika 17.0 H Plt Count 185 MPV 9.5 Immature Gran % (Auto) 0.200 Neut % (Auto) 65.1 Lymph % (Auto) 22.2 [place] % (Auto) 10.9 H Eos % (Auto) 0.9 Baso % (Auto) 0.7 Absolute Neuts (auto) 3.0 Absolute Lymphs (auto) 1.02 Nucleated RBC % 0 Sodium 138 Potassium 3.7 Chloride 106 Carbon Dioxide 26.0 Anion Gap 6 BUN 6 L Creatinine 0.58 Estim Creat Clear Calc 110.55 Est GFR (MDRD) Af Amer 139 Est GFR (MDRD) Non-Af 115 BUN/Creatinine Ratio 10.4 Glucose 92 Calcium 8.8 - Medical Decision Making Labs are reassuringly unremarkable. She does not have an elevated BUN to suggest that she has an active peptic ulcer bleed. The bleeding sounds like it is mild. Therefore I do not think I need to check a rectal for pooling. She has had no bleeding without stool. CT scan shows no signs of diverticulitis but she does have diverticulosis and a duodenal diverticulum, I do not think that is necessarily the source of the bleeding but am unable to rule that out completely. She is not having life-threatening bleeding and is not on any anticoagulants so I feel she is safe to be discharged home and follow-up as an outpatient. She has never had a colonoscopy, I advised her to discuss with her doctor as an outpatient. We discussed reasons to return. ED Disposition - Plan for ED Patient: Disposition: Home or Assisted Living Diagnosis: Lower GI bleeding, LLQ abdominal pain, Diverticulosis Instructions: Diverticulosis, When You Have Gastrointestinal (GI) Bleeding Referrals: Jennifer Addison MD [Primary Care Provider] - 3-5 Days Jagruti Jacobo MD [STAFF PHYSICIAN] - (for colonoscopy evaluation -- call for appt)
[2019-08-03] MEDS: 0.9% Normal Saline 1,000 ML 1000 ML IV (09:39)
[2019-08-03] MEDS: Ondansetron 4 MG/2 ML Vial IV (09:40)
[2019-08-03] MEDS: Dicyclomine 20 MG/2 ML Vial IM (09:40)
[2019-08-03 09:56] LABS: Absolute Lymphocyte Count 1.02 X10^3/uL (0.83-4.51); Basophil# 0.03 X10^3/uL; Basophil% 0.7 % (0-1); Eosinophil# 0.04 X10^3/uL; Eosinophils% 0.9 % (0-5); Hemoglobin 12.8 g/dL (12.0-15.0); Lymphocyte # 1.02 X10^3/ul (4.0); Lymphocyte % 22.2 % (19-41); Mean Corp Hgb Conc 34.6 g/dL (32-36); Mean Corpuscular Hgb 32.8 pg (27.0-32.0); Mean Corpuscular Volume 94.9 fL (81-99); Mean Platelet Vol. 9.5 fl (6.2-12.0); Monocyte% 10.9 % (0-10); NRBC Flagged by Analyzer 0 % (0-5); Neutrophil # 2.99 X10^3/uL (2.7-7.7); Neutrophil % 65.1 % (47-70); Platelet Count 185 K/mm3 (150-450); RBC Distribution Width SD 58.4 fl (35.1-43.9); White Blood Count 4.6 K/mm3 (4.4-11.0)
[2019-08-03 10:06] LABS: Anion Gap 6 (5-15); BUN 6 mg/dL (7-18); BUN/Creat Ratio 10.4 RATIO (10-20); Calcium,Total 8.8 mg/dL (8.5-10.1); Chloride 106 mmol/L (98-107); Creatinine, Serum 0.58 mg/dL (0.55-1.02); EST Glomerular Filtration Rate 115 mL/min (>60); Est Glom Filt Rate - Afr Amer 139 mL/min (>60); Estimated Creatinine Clearance 110.55 ml/min; Glucose 92 mg/dL (74-106); Potassium 3.7 mmol/L (3.5-5.1); Sodium Level 138 mmol/L (136-145)
[2019-08-03 11:24] VITALS: BP 132/88; PULSE 88; RESP 18; O2SAT 97
== END 2019-08-03 11:26 | disposition home or self-care (01) ==
PROVIDERS: Emergency Provider Emergency Medicine; PCP Internal Medicine
DX: K57.31 Diverticulosis of large intestine without perforation or abscess with bleeding (principal); F17.200 Nicotine dependence, unspecified, uncomplicated; Z79.899 Other long term (current) drug therapy; Z88.6 Allergy status to analgesic agent; Z87.11 Personal history of peptic ulcer disease
CPT/HCPCS: 74177; 80048; 85025; 96361; 96372; 96374; 99285; J7030; Q9967; A4216; J2405

== ENCOUNTER 2023-11-02 16:14 | Inpatient (IN) | payer MEDICAID, SELFPAY ==
[2023-11-02] VITALS (7 sets, daily range): BP systolic 123–185; BP diastolic 60–77; PULSE 88–129; RESP 16–24; TEMP 36.1–36.9; O2SAT 95–100; BMI 25.2; BMI 25.3
--- NOTE | 2023-11-02 16:52 | EX.ED.SAOD ---
HPI History of Present Illness Chief Complaint: Substance Abuse Informant: patient Onset/Context/Timing Onset: Days (Day and a half ago) Context: Gradual Onset Timing: Continuous Quality: Sharp pain Location: Bilateral feet and ankles Worsened by: Nothing Relieved by: Nothing Associated Symptoms Associated Symptoms: Positive for diarrhea*, rash* and palpatations; Negative for vomiting*, fever*, seizure, tremor, change in mental status or homicidal ideation Narrative Narrative: Patient presents requesting detox from fentanyl, methamphetamines, and alcohol. Patient states that she normally uses 1 to 2 g/day. Patient states her last use was about a day and a half ago. Patient states she normally snorts the fentanyl. Patient also admits to drinking approximately 12 beers per day. Patient admits to some nausea and diarrhea. Patient denies any vomiting. Patient admits to some palpitations. Patient also admits to a rash over her lower legs. Patient denies any fevers or chills. Patient denies any seizures or tremors. Patient states she went through detox in [place] approximately 2 months ago. [facility] Medical History no medical history no medical history Home Medications ?Medication ?Instructions ?Recorded ?Last Taken ?Type pantoprazole 40 mg tablet,delayed 40 mg PO DAILY gerd 10/06/18 10/06/18 History release gabapentin 300 mg capsule 600 mg PO TID 12/03/18 Unknown History Allergy/AdvReac Type Severity Reaction Status Date / Time ibuprofen AdvReac BAD Verified 11/02/23 16:14 STOMACH Surgical History S/P clamping of cerebral aneurysm Social History (Updated 08/15/18 @ 13:56 by Maximus BRIGHT, PA) Smoking Status: Current every day smoker tobacco type: cigarettes ROS ROS ED Constitutional Constitutional ED: Denies chills or fever(s) Eyes Eyes: Denies blurry vision or diplopia ENT ENT ED: Denies rhinorrhea or sore throat Cardiovascular Cardiovascular: Reports palpitations; Denies chest pain Respiratory/Chest Respiratory/Chest: Reports dyspnea; Denies cough Gastrointestinal Gastrointestinal: Reports diarrhea and nausea; Denies melena or vomiting Genitourinary Genitourinary ED: Denies dysuria or urinary frequency Musculoskeletal Musculoskeletal: Reports back pain; Denies neck pain Integumentary Reports rash; Denies abscess Neurologic Neurologic: Denies headache(s) or weakness Psychiatric Psychiatric: Reports anxiety Allergic/Immunologic Allergic/Immunologic ED: Denies mouth swelling or urticaria EXAM Physical Exam Const Vital Signs: 11/02/23 16:15 Temperature 96.9 F L Temperature Source Temporal Pulse Rate 129 H Respiratory Rate 20 H Blood Pressure 185/71 H Blood Pressure Mean 109 Pulse Ox 98 Oxygen Delivery Method Room Air Positive well nourished and well developed General Appearance ED: well developed and NAD HEENT Reports moist mucous membranes Neck supple and no JVD Resp normal respiratory effort and clear to auscultation bilaterally Cardio regular rhythm Rate: tachycardic GI soft to palpation, non-tender and non-distended Neuro oriented x3, CN's II-XII intact bilaterally and no sensory deficits noted Sensorium / Orientation: alert Motor Exam: strength 5/5 throughout Psych Mood & Affect: anxious MDM MDM MDM Narrative Medical decision making narrative: Medical screening labs will be obtained. CBC will be obtained to assess for leukocytosis and anemia. Comprehensive metabolic profile will be obtained to assess for hepatic function, renal function, and electrolyte abnormality. Serum alcohol level will be obtained to assess for alcohol intoxication. Urine tox screen will be obtained to assess for substance abuse. Urinalysis will be obtained to assess for urinary tract infection. Lab Data Attestation: I reviewed the patient's lab results. Lab results narrative: CBC was reviewed and was within normal limits. Comprehensive metabolic profile was reviewed. Potassium was low at 2.9. The remainder was within normal limits. Urinalysis was reviewed. There is no evidence of urinary tract infection or hematuria. Serum alcohol level was reviewed and was less than 3.0. Urine tox screen was reviewed and was positive for opiates and amphetamines. Labs: Laboratory Results - last 24 hr 11/02/23 11/02/23 17:11 17:24 WBC 7.5 RBC 4.19 L Hgb 13.2 Hct 40.1 MCV 95.7 MCH 31.5 MCHC 32.9 RDW Std Deviation 49.1 H RDW Coeff of Tika 13.8 Plt Count 298 MPV 10.2 Immature Gran % (Auto) 0.300 Neut % (Auto) 83.2 H Lymph % (Auto) 12.8 L [place] % (Auto) 3.6 Eos % (Auto) 0.0 Baso % (Auto) 0.1 Absolute Neuts (auto) 6.3 Absolute Lymphs (auto) 0.96 Nucleated RBC % 0 Sodium 141 Potassium 2.9 L Chloride 106 Carbon Dioxide 25.0 Anion Gap 10 BUN 7 Creatinine 0.92 Estim Creat Clear Calc 66.42 Est GFR (MDRD) Af Amer 80 Est GFR (MDRD) Non-Af 66 BUN/Creatinine Ratio 7.6 L Glucose 162 H Calcium 9.7 Total Bilirubin 0.40 AST 17 ALT 21 Alkaline Phosphatase 114 Total Protein 7.1 Albumin 3.4 Globulin 3.7 Albumin/Globulin Ratio 0.9 Urine Color Yellow Urine Clarity Clear Urine pH 6.0 Ur Specific [place] 1.015 Urine Protein Negative Urine Glucose (UA) Normal Urine Ketones Negative Urine Occult Blood Negative Urine Nitrite Negative Urine Bilirubin Negative Urine Urobilinogen Normal Ur Leukocyte Esterase Negative Urine RBC 0 SEEN Urine WBC 0 SEEN Ur Squamous Epith Cells 0 SEEN Urine Bacteria 0 SEEN Hyaline Casts 0-5 SEEN Urine Mucus 0 SEEN Urine Opiates Screen POSITIVE H Urine Methadone Screen NEGATIVE Ur Barbiturates Screen NEGATIVE Ur Phencyclidine Scrn NEGATIVE Ur Amphetamines Screen POSITIVE H MDMA (Ecstasy) Screen NEGATIVE U Benzodiazepines Scrn NEGATIVE Urine Cocaine Screen NEGATIVE U Cannabinoids Screen NEGATIVE Ur Drug Screen Comment Ethyl Alcohol < 3.0 Management Discussion w/another healthcare provider: Hospitalist Treatment and Re-Evaluation Narrative: Patient was given a dose of phenobarbital here. Patient was given a dose of oral potassium here. Case was discussed with the hospitalist. He will admit the patient to his service. Patient understood and was agreeable with the plan. All questions were answered Discharge Plan Dx/Rx/DC Orders Clinical Impression: Opiate withdrawal, Alcohol abuse, Hypokalemia Disposition Disposition: Acute Care Hospital [facility]
[2023-11-02] MEDS: Phenobarbital 32.4 MG Tablet PO (17:17)
[2023-11-02 17:19] LABS: Bacteria 0 SEEN /hpf (None Seen); Mucous, Urine 0 SEEN /hpf (<or=2+); Red Blood Cells-Urine 0 SEEN /hpf (0-5); Squamous Epithelial Cells - UA 0 SEEN /hpf (5-10); White Blood Cells 0 SEEN /hpf (0-5)
[2023-11-02 17:26] LABS: Color, Urine Yellow (Yellow); Glucose, Dipstick Normal (Normal); Ketone-Dipstick Negative (Negative); Leukocyte Esterase-Dipstick Negative /ul (Negative); Nitrite-Dipstick Negative (Negative); Occult Blood-Urine Negative /ul (Negative); Protein-Dipstick Negative (Negative); Specific Gravity, Urine 1.015 (1.002-1.030); Urine Bilirubin Dipstick Negative (Negative); Urine Clarity Clear (Clear); Urine Urobilinogen Normal (Normal)
[2023-11-02 17:29] LABS: Absolute Lymphocyte Count 0.96 X10^3/uL (0.83-4.51); Absolute Neutrophil Count 6.3 X10^3/uL (2.0-7.7); Basophil# 0.01 X10^3/uL; Basophil% 0.1 % (0-1); Hematocrit 40.1 % (37-47); Hemoglobin 13.2 g/dL (12.0-15.0); Lymphocyte # 0.96 X10^3/ul (0.83-4.51); Lymphocyte % 12.8 % (19-41); Mean Corp Hgb Conc 32.9 g/dL (32-36); Mean Corpuscular Hgb 31.5 pg (27.0-32.0); Mean Corpuscular Volume 95.7 fL (81-99); Mean Platelet Vol. 10.2 fl (6.2-12.0); Monocyte# 0.27 X10^3/uL; Monocyte% 3.6 % (0-10); NRBC Flagged by Analyzer 0 % (0-5); Neutrophil # 6.25 X10^3/uL (2.7-7.7); Neutrophil % 83.2 % (47-70); Platelet Count 298 K/mm3 (150-450); RBC Distribution Width CV 13.8 % (11.6-14.6); RBC Distribution Width SD 49.1 fl (35.1-43.9); Red Blood Count 4.19 M/mm3 (4.2-5.4); White Blood Count 7.5 K/mm3 (4.4-11.0)
[2023-11-02 17:33] LABS: Hyaline Cast 0-5 SEEN /lpf (0-5)
[2023-11-02 17:42] LABS: Alcohol, Blood (Medical)-Serum < 3.0 mg/dL
[2023-11-02 17:46] LABS: ALB/GLOB Ratio 0.9 RATIO (0.9-2.4); AST(SGOT) 17 U/L (15-37); Alanine Aminotransfer ALT/SGPT 21 U/L (13-56); Albumin, Serum 3.4 g/dL (3.2-5.0); Alkaline Phosphatase 114 U/L (45-117); Anion Gap 10 (5-15); BUN 7 mg/dL (7-18); BUN/Creat Ratio 7.6 RATIO (10-20); Calcium,Total 9.7 mg/dL (8.5-10.1); Chloride 106 mmol/L (98-107); Creatinine, Serum 0.92 mg/dL (0.55-1.02); EST Glomerular Filtration Rate 66 mL/min (>60); Est Glom Filt Rate - Afr Amer 80 mL/min (>60); Estimated Creatinine Clearance 66.42 ml/min; Globulin 3.7 g/dL (2.2-4.2); Glucose 162 mg/dL (74-106); Potassium 2.9 mmol/L (3.5-5.1); Protein, Total 7.1 g/dL (6.4-8.2); Sodium Level 141 mmol/L (136-145)
--- NOTE | 2023-11-02 17:59 | PCM.HP.STD ---
HPI - General General Date of Admission: 11/02/23 Date of Service: 11/02/23 Chief Complaint: Polysubstance abuse HPI Narrative JOSE CARLOS CHASE, is a 58 F who presents For detoxification from fentanyl, methamphetamine and alcohol. She has a past medical history of peptic ulcer disease on pantoprazole 40 mg daily alcohol use, brain aneurysm, tobacco use. She last drank alcohol around pack of 12 beers and also smokes methamphetamine and fentanyl. In the past she was using IV fentanyl and methamphetamine but has stopped for the last 2 months. He is not sexually active, no history of needle sharing. At the time of presentation in the ED blood pressure 185/75, pulse 129, temperature 96.9, received 1 dose of phenobarbital 32.4 mg in the ED. WBC 7.5, hemoglobin 13.2, sodium 141, potassium 2.9 glucose 162, normal liver function test, normal urine analysis. Ethyl alcohol levels in the blood were negative. Urine tox levels are pending. [facility] Medical History no medical history Home Medications ?Medication ?Instructions ?Recorded ?Last Taken ?Type pantoprazole 40 mg tablet,delayed 40 mg PO DAILY gerd 10/06/18 10/06/18 History release gabapentin 300 mg capsule 600 mg PO TID 12/03/18 Unknown History Allergy/AdvReac Type Severity Reaction Status Date / Time ibuprofen AdvReac BAD Verified 11/02/23 16:14 STOMACH Surgical History S/P clamping of cerebral aneurysm Social History (Updated 08/15/18 @ 13:56 by Maximus BRIGHT, PA) Smoking Status: Current every day smoker tobacco type: cigarettes ROS Review of Systems ROS Unobtainable: Denies due to encephalopathy, due to endotracheal tube, due to mental condition, due to mental status or other Constitutional Constitutional: Reports change in weight, chills and fatigue Eyes Eyes: Denies blurry vision, change in eye color, change in vision, discharge from eye(s), double vision, erythema, eye pain, loss of vision or other ENT HEENT: Denies abnormal hearing, dysphagia, ear pain, epistaxis, headache(s), hearing loss, nasal congestion, nasal discharge, post nasal drip, sinus pressure, sore throat or other Cardiovascular Cardiovascular: Denies chest pain, claudication, dyspnea on exertion, edema, lightheadedness, orthopnea, palpitations, paroxysmal nocturnal dyspnea, rapid heart rate, syncope or other Respiratory/Chest Respiratory/Chest: Denies cough, dyspnea, excessive phlegm production, hemoptysis, productive cough, shortness of breath at rest, shortness of breath with exertion, wheezing or other Gastrointestinal Gastrointestinal: Denies abdominal pain, coffee ground emesis, constipation, diarrhea, dyspepsia, hematemesis, hematochezia, loose stools, melena, nausea, vomiting or other Genitourinary Genitourinary: Denies burning urination, difficulty urinating, dysuria, hematuria, nocturia, urinary frequency, urinary hesitancy, urinary incontinence, urinary urgency or other Musculoskeletal Musculoskeletal: Reports arthralgias and other Details: Burning sensation over both feet ; Denies back pain, joint pain, joint stiffness, joint swelling, myalgias or neck pain Neurologic Neurologic: Denies abnormal gait, abnormal speech, confusion, disequilibrium, dizziness, focal weakness, headache(s), numbness, paresthesias, seizure-like activity, seizures, syncope, tingling, tremor(s) or other Endocrine Endocrinology: Denies change in body appearance, cold intolerance, excessive sweating, heat intolerance, polydipsia, polyuria or other Hematologic/Lymphatic Hematologic/Lymphatic: Denies anemia, easy bleeding, easy bruising, lymphadenopathy or other Allergic/Immunologic Allergic/Immunologic: Denies rhinitis, hives, eczemia, asthma or other Vital Signs Vital Signs Vital Signs: 11/02/23 16:15 Temperature 96.9 F L Temperature Source Temporal Pulse Rate 129 H Respiratory Rate 20 H Blood Pressure 185/71 H Blood Pressure Mean 109 Pulse Ox 98 Oxygen Delivery Method Room Air Weight Weight: 166 lb 0.129 oz Body Mass Index (BMI) 25.2 Physical Exam Const alert and oriented x3 Constitutional Narrative: Has burning sensation over his feet HEENT normocephalic Results Lab / Micro Data 11/02/23 17:24 11/02/23 17:24 Labs: Laboratory Results - last 24 hr 11/02/23 17:11: Urine Color Yellow, Urine Clarity Clear, Urine pH 6.0, Ur Specific [place] 1.015, Urine Protein Negative, Urine Glucose (UA) Normal, Urine Ketones Negative, Urine Occult Blood Negative, Urine Nitrite Negative, Urine Bilirubin Negative, Urine Urobilinogen Normal, Ur Leukocyte Esterase Negative, Urine RBC 0 SEEN, Urine WBC 0 SEEN, Ur Squamous Epith Cells 0 SEEN, Urine Bacteria 0 SEEN, Hyaline Casts 0-5 SEEN, Urine Mucus 0 SEEN, Ur Drug Screen Comment 11/02/23 17:24: WBC 7.5, RBC 4.19 L, Hgb 13.2, Hct 40.1, MCV 95.7, MCH 31.5, MCHC 32.9, RDW Std Deviation 49.1 H, RDW Coeff of Tika 13.8, Plt Count 298, MPV 10.2, Immature Gran % (Auto) 0.300, Neut % (Auto) 83.2 H, Lymph % (Auto) 12.8 L, [place] % (Auto) 3.6, Eos % (Auto) 0.0, Baso % (Auto) 0.1, Absolute Neuts (auto) 6.3, Absolute Lymphs (auto) 0.96, Nucleated RBC % 0, Sodium 141, Potassium 2.9 L, Chloride 106, Carbon Dioxide 25.0, Anion Gap 10, BUN 7, Creatinine 0.92, Estim Creat Clear Calc 66.42, Est GFR (MDRD) Af Amer 80, Est GFR (MDRD) Non-Af 66, BUN/Creatinine Ratio 7.6 L, Glucose 162 H, Calcium 9.7, Total Bilirubin 0.40, AST 17, ALT 21, Alkaline Phosphatase 114, Total Protein 7.1, Albumin 3.4, Globulin 3.7, Albumin/Globulin Ratio 0.9, Ethyl Alcohol < 3.0 Assessment & Plan Assessment/Plan (1) Alcohol abuse: PLAN: Plan 58-year-old female with a history of alcohol, methamphetamine and opioid abuse is being admitted for inpatient detoxification. Her last drug use was around 2 days back. In the past she was using IV drugs to stop since the last 2 months and has been only smoking her methamphetamine and fentanyl for the last 2 months. #Alcohol detoxification: -Admit to inpatient for detoxification and evaluation -Phenobarbital taper -Manage her withdrawal symptoms using gabapentin, Zofran, dicyclomine, hydroxyzine, loperamide -Thiamine supplementation, folic acid supplementation #Methamphetamine, fentanyl detoxification: -COWS every 8 hours, -add Bentyl, methocarbamol, Catapres #Feet burning: Suspect B vitamin deficiency -Thiamine supplementation -Continue to monitor -Tylenol 625 mg as needed for the pain #GERD: -Continue pantoprazole #Hypokalemia: Possibly due to malnutrition/hypomagnesemia from -Repleted in the ED -Closely monitor potassium levels and magnesium levels -Serum magnesium, phosphate #History of IV drug abuse: -Anti-HCV levels -HIV, hepatitis B serology #Refeeding syndrome: She has a history of prolonged starvation high risk for refeeding syndrome -Daily phosphorus monitoring #DVT prophylaxis: -Enoxaparin 40 mg subcutaneous Charges/Coding Visit Charges Inpatient E&M: 97598 Init Hosp L2
[2023-11-02 18:01] LABS: Amphetamine Urine VISTA POSITIVE (<1000 ng/mL); Barbiturate Urine VISTA NEGATIVE (< 200 ng/mL); Benzodiazepine Urine VISTA NEGATIVE (< 200 ng/mL); Cocaine Urine VISTA NEGATIVE (< 300 ng/mL); Ecstacy Urine VISTA NEGATIVE (< 500 ng/mL); Methadone Urine VISTA NEGATIVE (< 300 ng/mL); PCP Urine VISTA NEGATIVE (< 25 ng/mL); THC Urine VISTA NEGATIVE (< 50 ng/mL); Vista UDS pH Range 6
[2023-11-02] MEDS: Potassium Chloride Oral Tablet 20 MEQ 40 MEQ PO (18:05)
[2023-11-02] MEDS: Acetaminophen 500 MG Tablet 1000 MG PO (18:11)
[2023-11-02 19:24] LABS: Magnesium 1.9 mg/dL (1.6-2.6)
[2023-11-02] MEDS: Phenobarbital 32.4 MG Tablet 64.8 MG PO (23:52)
[2023-11-03] VITALS (7 sets, daily range): BP systolic 118–157; BP diastolic 67–79; PULSE 84–90; RESP 16–20; TEMP 36.4–36.8; O2SAT 95–98
[2023-11-03 00:25] LABS: Bedside Glucose 108 mg/dL (74-106)
[2023-11-03] MEDS: Buprenorphine HCl 2 MG TAB.SUBL SL ×3 (03:13→18:44)
[2023-11-03] MEDS: Methocarbamol 750 MG Tablet PO ×3 (03:13→21:56)
[2023-11-03] MEDS: Phenobarbital 32.4 MG Tablet 64.8 MG PO ×6 (03:13→23:04)
[2023-11-03] MEDS: Ondansetron 8 MG Tablet PO (06:11)
[2023-11-03] MEDS: Gabapentin 300 MG Capsule PO (06:11)
[2023-11-03 06:21] LABS: Absolute Lymphocyte Count 3.69 X10^3/uL (0.83-4.51); Absolute Neutrophil Count 4.3 X10^3/uL (2.0-7.7); Basophil# 0.03 X10^3/uL; Basophil% 0.3 % (0-1); Eosinophil# 0.03 X10^3/uL; Eosinophils% 0.3 % (0-5); Hematocrit 36.4 % (37-47); Lymphocyte # 3.69 X10^3/ul (0.83-4.51); Lymphocyte % 41.3 % (19-41); Mean Corpuscular Hgb 31.3 pg (27.0-32.0); Mean Platelet Vol. 10.8 fl (6.2-12.0); Monocyte# 0.85 X10^3/uL; Monocyte% 9.5 % (0-10); NRBC Flagged by Analyzer 0 % (0-5); Neutrophil # 4.31 X10^3/uL (2.7-7.7); Neutrophil % 48.4 % (47-70); Platelet Count 278 K/mm3 (150-450); RBC Distribution Width CV 13.9 % (11.6-14.6); RBC Distribution Width SD 48.7 fl (35.1-43.9); Red Blood Count 3.83 M/mm3 (4.2-5.4); White Blood Count 8.9 K/mm3 (4.4-11.0)
[2023-11-03 06:32] LABS: International Normalized Ratio 1.1; Prothrombin Time (Protime)PT. 13.7 SECONDS (11.7-14.9)
[2023-11-03 06:36] LABS: Bedside Glucose 91 mg/dL (74-106)
[2023-11-03 07:09] LABS: ALB/GLOB Ratio 0.9 RATIO (0.9-2.4); AST(SGOT) 15 U/L (15-37); Alanine Aminotransfer ALT/SGPT 15 U/L (13-56); Alkaline Phosphatase 97 U/L (45-117); Anion Gap 8 (5-15); BUN 10 mg/dL (7-18); BUN/Creat Ratio 15.8 RATIO (10-20); Bilirubin, Direct 0.11 mg/dL (0.00-0.30); Calcium,Total 9.4 mg/dL (8.5-10.1); Chloride 110 mmol/L (98-107); Creatinine, Serum 0.63 mg/dL (0.55-1.02); EST Glomerular Filtration Rate 102 mL/min (>60); Est Glom Filt Rate - Afr Amer 124 mL/min (>60); Estimated Creatinine Clearance 104.76 ml/min; Globulin 3.2 g/dL (2.2-4.2); Glucose 102 mg/dL (74-106); Phosphorus 2.9 mg/dL (2.5-4.9); Potassium 3.3 mmol/L (3.5-5.1); Protein, Total 6.2 g/dL (6.4-8.2); Sodium Level 141 mmol/L (136-145); Thyroid Stim Hormone (TSH) 0.28 uIU/mL (0.358-3.74)
[2023-11-03] MEDS: Potassium Chloride Oral Tablet 20 MEQ 40 MEQ PO (08:19)
[2023-11-03] MEDS: Dicyclomine 10 MG Capsule 20 MG PO (08:19)
[2023-11-03] MEDS: Folic Acid 1 MG Tablet PO (08:20)
[2023-11-03] MEDS: Ensure Plus High Protein 120 ML LIQUID PO (08:20)
[2023-11-03] MEDS: Thiamine Hydrochloride 100 MG Tablet PO (08:21)
--- NOTE | 2023-11-03 09:42 | PN_ITS ---
Subjective Subjective Patient seen and examined. She complained of some nausea overnight, but this has resolved. She denies any symptoms of withdrawal. Review of systems is otherwise negative. Objective Data Objective Data Vital Signs: Vital Signs Temp Pulse Resp BP Pulse Ox O2 Del Method 97.8 F 90 16 137/71 H 97 Room Air 11/03/23 06:00 11/03/23 08:11 11/03/23 06:00 11/03/23 06:00 11/03/23 06:00 11/03/23 06:00 Oxygen Delivery Method Room Air Weight: 169 lb 1.513 oz Body Mass Index (BMI) 25.3 Intake & Output: Intake and Output for Last 24 Hours 11/01/23 11/02/23 11/03/23 23:59 23:59 23:59 Intake Total 600 / 600 Balance 600 / 600 Lab / Micro Data 11/03/23 05:04 11/03/23 05:04 Labs: Laboratory Results - last 24 hr 11/02/23 17:11: Urine Color Yellow, Urine Clarity Clear, Urine pH 6.0, Ur Specific [place] 1.015, Urine Protein Negative, Urine Glucose (UA) Normal, Urine Ketones Negative, Urine Occult Blood Negative, Urine Nitrite Negative, Urine Bilirubin Negative, Urine Urobilinogen Normal, Ur Leukocyte Esterase Negative, Urine RBC 0 SEEN, Urine WBC 0 SEEN, Ur Squamous Epith Cells 0 SEEN, Urine Bacteria 0 SEEN, Hyaline Casts 0-5 SEEN, Urine Mucus 0 SEEN, Urine Opiates Screen POSITIVE H, Urine Methadone Screen NEGATIVE, Ur Barbiturates Screen NEGATIVE, Ur Phencyclidine Scrn NEGATIVE, Ur Amphetamines Screen POSITIVE H, MDMA (Ecstasy) Screen NEGATIVE, U Benzodiazepines Scrn NEGATIVE, Urine Cocaine Screen NEGATIVE, U Cannabinoids Screen NEGATIVE, Ur Drug Screen Comment 11/02/23 17:24: WBC 7.5, RBC 4.19 L, Hgb 13.2, Hct 40.1, MCV 95.7, MCH 31.5, MCHC 32.9, RDW Std Deviation 49.1 H, RDW Coeff of Tika 13.8, Plt Count 298, MPV 10.2, Immature Gran % (Auto) 0.300, Neut % (Auto) 83.2 H, Lymph % (Auto) 12.8 L, [place] % (Auto) 3.6, Eos % (Auto) 0.0, Baso % (Auto) 0.1, Absolute Neuts (auto) 6.3, Absolute Lymphs (auto) 0.96, Nucleated RBC % 0, Sodium 141, Potassium 2.9 L , Chloride 106, Carbon Dioxide 25.0, Anion Gap 10, BUN 7, Creatinine 0.92, Estim Creat Clear Calc 66.42, Est GFR (MDRD) Af Amer 80, Est GFR (MDRD) Non-Af 66, B UN/Creatinine Ratio 7.6 L, Glucose 162 H, Calcium 9.7, Magnesium 1.9, Total Bilirubin 0.40, AST 17, ALT 21, Alkaline Phosphatase 114, Total Protein 7.1, Albumin 3.4, Globulin 3.7, Albumin/Globulin Ratio 0.9, Ethyl Alcohol < 3.0 11/02/23 23:49: POC Glucose 108 H 11/03/23 05:04: WBC 8.9, RBC 3.83 L, Hgb 12.0, Hct 36.4 L, MCV 95.0, MCH 31.3, MCHC 33.0, RDW Std Deviation 48.7 H, RDW Coeff of Tika 13.9, Plt Count 278, MPV 10.8, Immature Gran % (Auto) 0.200, Neut % (Auto) 48.4, Lymph % (Auto) 41.3 H, [place] % (Auto) 9.5, Eos % (Auto) 0.3, Baso % (Auto) 0.3, Absolute Neuts (auto) 4.3, Absolute Lymphs (auto) 3.69, Nucleated RBC % 0, PT 13.7, INR 1.1, Sodium 141, Potassium 3.3 L, Chloride 110 H, Carbon Dioxide 23.0, Anion Gap 8, BUN 10, Creatinine 0.63, Estim Creat Clear Calc 104.76, Est GFR (MDRD) Af Amer 124, Est GFR (MDRD) Non-Af 102, BUN/Creatinine Ratio 15.8, Glucose 102, Calcium 9.4, Phosphorus 2.9, Magnesium 2.0, Total Bilirubin 0.40, Direct Bilirubin 0.11, AST 15, ALT 15, Alkaline Phosphatase 97, Total Protein 6.2 L, Albumin 3.0 L, Globulin 3.2, Albumin/Globulin Ratio 0.9, TSH 0.28 L 11/03/23 06:09: POC Glucose 91 Physical Exam Const alert, oriented x3 and no apparent distress General Appearance: cooperative HEENT normocephalic, head/scalp atraumatic, moist oral mucous membranes and oropharynx normal Eyes PERRL and EOMs intact bilaterally Neck no lymphadenopathy and supple Lymph Lymphatic: no lymphadenopathy noted and no lymphedema noted Resp normal respiratory effort, normal air movement and clear to auscultation bilaterally Cardio regular rate, regular rhythm, S1 normal heart sound, S2 normal heart sound and no murmurs GI normal to inspection, nondistended, normoactive bowel sounds, soft to palpation, non-tender and non-distended Extremity General Extremity: no tenderness to palpation of joints or extremities Skin General Skin Exam: no breakdown Neuro CN's II-XII intact bilaterally, no focal motor deficits, no sensory deficits noted and deep tendon reflexes 2+ bilaterally Motor Exam: strength 5/5 throughout and general weakness Psych thought process normal, cooperative and affect normal Activity / Motor Behavior: restless Assessment & Plan Assessment/Plan (1) Hypokalemia: (2) Alcohol abuse: (3) Opiate withdrawal: (4) Alcohol withdrawal delirium, acute, mixed level of activity: PLAN: Plan #Acute alcohol withdrawal * on alcohol withdrawal protocol with phenobarbital * adjunctive meds for symptomatic relief * thiamine, folic acid and multivites. * monitor CIWA score * #Hypokalemia: potassium is 3.3. Will replace and trend. #History of IV drug abuse: urine tox positive for opiates and amphetamines. Counseled to quit. Adjunctive meds for symptomatic relief #GERD: on PPI #Possible vitamin B deficiency: complained of burning in lower extremities. B12 and folae levels ordered. Started on thiamine supplementation. DVT prophylaxis: low risk, encourage to ambulate. Charges/Coding Visit Charges Inpatient E&M: 96190 Subs Hosp L2
[2023-11-03] MEDS: Pantoprazole Sodium 40 MG Tablet PO (10:45)
[2023-11-03] MEDS: Enoxaparin 40 MG/0.4 ML Syringe SC (10:45)
[2023-11-03 11:03] LABS: Bedside Glucose 106 mg/dL (74-106)
[2023-11-03 16:40] LABS: Bedside Glucose 91 mg/dL (74-106)
[2023-11-04 03:21] VITALS: BP 116/61; PULSE 85; RESP 16; TEMP 36.6; O2SAT 94
[2023-11-04] MEDS: Phenobarbital 32.4 MG Tablet 64.8 MG PO ×2 (03:26→06:35)
[2023-11-04] MEDS: Buprenorphine HCl 2 MG TAB.SUBL SL ×3 (03:26→18:48)
[2023-11-04 03:34] LABS: Bedside Glucose 135 mg/dL (74-106)
[2023-11-04] MEDS: Enoxaparin 40 MG/0.4 ML Syringe SC (08:13)
[2023-11-04] MEDS: Folic Acid 1 MG Tablet PO (08:14)
[2023-11-04] MEDS: Thiamine Hydrochloride 100 MG Tablet PO (08:14)
[2023-11-04] MEDS: Pantoprazole Sodium 40 MG Tablet PO (08:14)
[2023-11-04 08:38] LABS: Bedside Glucose 86 mg/dL (74-106)
[2023-11-04 09:15] VITALS: BP 118/71; PULSE 87; RESP 18; TEMP 36.5; O2SAT 99
--- NOTE | 2023-11-04 11:21 | ADDICTION ---
Addendum entered by Tiffany Izaguirre 11/05/23 11:34: [facility]/ Pt was approved by [facility] in [place] and hospital peer support will provide transport. Original Note: Addiction therapist met with pt to complete RAMP assessments. Pt reports that she believes she should go to inpatient but is anxious and scared to go. She has requested that I begin the process for [facility], and will decide by tomorrow morning if she wants to go. A referral has been placed and they will be calling to screen sometime this afternoon.
[2023-11-04 11:46] LABS: Bedside Glucose 123 mg/dL (74-106)
--- NOTE | 2023-11-04 13:50 | PN.HOSP_ITS ---
Reason for Visit Reason for Visit: Alcohol abuse with pending withdrawal/fentanyl abuse Subjective Subjective Mrs. Spain is a 58-year-old white female who presents emergency department at [facility] on 11/02/2023 requesting detoxification from fentanyl, methamphetamines and alcohol. She was informed on presentation that we do not detox from methamphetamines but did want to be detox from fentanyl and alcohol and signed RAMP paperwork. She indicated she typically uses about 1 to 2 g of fentanyl a day and her last use was about a day and a half ago. She uses it intranasally and she reported drinking approximately 12 beers daily. She has been an abuser of drugs and alcohol for about 30 years and has only been through detox once. Upon presentation she was having some nausea and diarrhea but denied any vomiting. She admitted to some palpitations. Her most recent detox was about 2 months ago. With regards to her methamphetamines she smokes this. She had previously used IV fentanyl but has not used any IV drugs in the last 2 months. Vital signs on presentation showed temperature of 96.9, heart rate 129, blood pressure was 185/71 and pulse ox was 98% on room air. Her CBC was unremarkable. Coags were normal. Chemistry panel showed hypokalemia with potassium of 2.9 and hyperglycemia with a glucose of 162 but her serum creatinine and other electrolytes were unremarkable. Liver functions were normal. TSH was found to be 0.28. She was admitted to the medical floor and placed on both the phenobarbital and Subutex taper. She denies any specific complaints at this time and states overall she is feeling better. Nursing reports that she has been quite drowsy and with her last alcohol use being on Saturday we have elected to discontinue her phenobarb and continue her Subutex. Stop date on her Subutex is tomorrow. She is agreeable to inpatient rehab and addiction medicine is looking into this as a possibility for her. Objective Data Objective Data Vital Signs: Vital Signs Temp Pulse Resp BP Pulse Ox O2 Del Method 97.7 F L 87 18 118/71 99 Room Air 11/04/23 09:15 11/04/23 09:15 11/04/23 09:15 11/04/23 09:15 11/04/23 09:15 11/04/23 09:15 Oxygen Delivery Method Room Air Weight: 76.7 kg Body Mass Index (BMI) 25.3 Intake & Output: Intake and Output for Last 24 Hours 11/02/23 11/03/23 11/04/23 23:59 23:59 23:59 Intake Total 1300 / 1800 1100 / 1100 Balance 1300 / 1800 1100 / 1100 Lab / Micro Data 11/03/23 05:04 11/03/23 05:04 Labs: Laboratory Results - last 24 hr 11/03/23 16:16: POC Glucose 91 11/03/23 23:03: POC Glucose 135 H 11/04/23 08:20: POC Glucose 86 11/04/23 11:26: POC Glucose 123 H Physical Exam Const alert, oriented x3, no apparent distress, average body habitus and well nourished; Negative for healthy appearing Constitutional Narrative: Upper middle-aged, white female, sitting up in bed, tearful but unable to tell me why, appears comfortable at this time, nontoxic-appearing, appears older than stated age HEENT head/scalp atraumatic and moist oral mucous membranes Eyes PERRL, EOMs intact bilaterally and conjunctivae normal Resp normal respiratory effort, no retractions, no use of accessory muscles and clear to auscultation bilaterally Resp Narrative: Diminished but clear Cardio regular rate, regular rhythm, S1 normal heart sound, S2 normal heart sound, no murmurs, no rub, no gallops and no clicks GI normal to inspection, nondistended, normoactive bowel sounds, soft to palpation and non-tender Extremity no clubbing, cyanosis or edema Neuro oriented x3, moves all extremities and no focal motor deficits Psych Psych Narrative: Tearful, affect is flat, eye contact is poor and mood seems depressed Assessment & Plan Assessment/Plan (1) Hypokalemia: (2) Alcohol abuse: (3) Opiate withdrawal: (4) Abnormal TSH: (5) ETOH abuse: PLAN: Plan Acute alcohol withdrawal -Patient not having significant symptoms -Marked sedation so we will discontinue phenobarbital -last drink was on Saturday -Continue CIWA and per discussion with nursing to notify me if any significant changes so we can maybe reinitiate phenobarb or use as needed Ativan -Continue thiamine and folate -Continue supportive medications -180 has evaluated the patient and plan is for inpatient rehab as a possibility Acute opiate withdrawal -Continue Subutex taper which is to be completed tomorrow late afternoon -Continue supportive medications -Plan from 180 as above Hypokalemia -Improved on her last lab drawl -will repeat BMP in a.m. -Check magnesium level Abnormal TSH -Suspect euthyroid sick syndrome but will rule out true thyroid disease with free T4 Tachycardia -Resolved Elevated blood pressure -Likely related to withdrawal -Resolved History of IVDU -No current use -Recommend ongoing cessation GERD/PUD -Continue home PPI Tobacco abuse -Recommend cessation -Nicotine patch available if needed DVT prophylaxis -Enoxaparin subcu 40 daily CODE STATUS -Full code is verified at the time of admission Charges/Coding Visit Charges Inpatient E&M: 11241 Subs Hosp L2
[2023-11-04 14:00] VITALS: BP 118/67; PULSE 86; RESP 18; TEMP 36.1; O2SAT 96
[2023-11-04 14:55] LABS: Vitamin B12 227 pg/mL (211-911)
--- NOTE | 2023-11-04 16:21 | CHAPLAIN ---
Type of Pastoral Visit ___ Initial Visit ___ Follow-up Visit ___ On-call Visit ___ General Patient Visit ___ Spiritual Assessment ___ Family Conference ___ Bereavement ___ Rapid Response ___ Code Blue ___ Other (describe below) Pastoral Care Referral From ___ Patient ___ Family ___ Nurse ___ Physician ___ Dinkey Engine Firer/Fireman ___ Metal Die Finisher ___ Other (describe below) Sacrament/Intervention ___ Active listening ___ Anointing ___ Caodaism ___ Bereavement ___ Communion ___ Emy exploration ___ ___ Life review ___ Prayer ___ Reconciliation ___ Sacrament of Sick ___ Supportive presence ___ Wedding ___ Other (describe below) Pastoral Comments patient was sleeping and did not awaken to her name
[2023-11-04 20:26] VITALS: BP 146/71; PULSE 89; RESP 18; TEMP 36.7; O2SAT 94
[2023-11-04 20:58] LABS: Bedside Glucose 100 mg/dL (74-106)
[2023-11-05 00:20] LABS: Bedside Glucose 171 mg/dL (74-106)
[2023-11-05 03:04] VITALS: BP 141/76; PULSE 86; RESP 18; TEMP 36.7; O2SAT 95
[2023-11-05] MEDS: Buprenorphine HCl 2 MG TAB.SUBL SL (06:07)
[2023-11-05 06:25] LABS: Bedside Glucose 93 mg/dL (74-106)
[2023-11-05 07:01] LABS: Anion Gap 5 (5-15); BUN 7 mg/dL (7-18); BUN/Creat Ratio 13.2 RATIO (10-20); Calcium,Total 8.4 mg/dL (8.5-10.1); Chloride 103 mmol/L (98-107); Creatinine, Serum 0.53 mg/dL (0.55-1.02); EST Glomerular Filtration Rate 125 mL/min (>60); Est Glom Filt Rate - Afr Amer 152 mL/min (>60); Estimated Creatinine Clearance 124.53 ml/min; Glucose 92 mg/dL (74-106); Magnesium 2.2 mg/dL (1.6-2.6); Phosphorus 3.5 mg/dL (2.5-4.9); Potassium 3.9 mmol/L (3.5-5.1); Sodium Level 137 mmol/L (136-145)
[2023-11-05 08:18] VITALS: BP 125/75; PULSE 88; RESP 18; TEMP 36.4; O2SAT 96
[2023-11-05] MEDS: Cyanocobalamin 500 MCG Tablet 1000 MCG PO (08:29)
[2023-11-05] MEDS: Cyanocobalamin (B12) 1,000 MCG/ML Vial 1000 MCG IM (08:29)
[2023-11-05] MEDS: Thiamine Hydrochloride 100 MG Tablet PO (08:30)
[2023-11-05] MEDS: Folic Acid 1 MG Tablet PO (08:30)
[2023-11-05] MEDS: Enoxaparin 40 MG/0.4 ML Syringe SC (08:30)
[2023-11-05] MEDS: Pantoprazole Sodium 40 MG Tablet PO (08:30)
--- NOTE | 2023-11-05 11:09 | PCM.DC.SUM ---
Providers Date of Admission: 11/02/23 Primary Care Physician: Dr. Jennifer Addison MD Reason For Visit: ALCOHOL ABUSE Diagnosis Discharge Diagnosis (1) Hypokalemia: Status: Acute Code(s): E87.6 - Hypokalemia (2) Alcohol abuse: Status: Acute Code(s): F10.10 - Alcohol abuse, uncomplicated (3) Opiate withdrawal: Status: Acute Code(s): F11.93 - Opioid use, unspecified with withdrawal (4) Abnormal TSH: Status: Acute Code(s): R79.89 - Other specified abnormal findings of blood chemistry Medications at Discharge Home Medications cyanocobalamin (vitamin B-12) 500 mcg tablet 1,000 mcg (2 x 500 mcg) PO BREAKFAST #120 tabs 11/05/23 Hospital Course Operations None Procedures None Summary of Care Provided Minutes Spent on Discharge: 38 Hospital Course: Mrs. Spain is a 58-year-old white female who presents emergency department at [facility] on 11/02/2023 requesting detoxification from fentanyl, methamphetamines and alcohol. She was informed on presentation that we do not detox from methamphetamines but did want to be detox from fentanyl and alcohol and signed RAMP paperwork. She indicated she typically uses about 1 to 2 g of fentanyl a day and her last use was about a day and a half ago. She uses it intranasally and she reported drinking approximately 12 beers daily. She has been an abuser of drugs and alcohol for about 30 years and has only been through detox once. Upon presentation she was having some nausea and diarrhea but denied any vomiting. She admitted to some palpitations. Her most recent detox was about 2 months ago. With regards to her methamphetamines she smokes this. She had previously used IV fentanyl but has not used any IV drugs in the last 2 months. Vital signs on presentation showed temperature of 96.9, heart rate 129, blood pressure was 185/71 and pulse ox was 98% on room air. Her CBC was unremarkable. Coags were normal. Chemistry panel showed hypokalemia with potassium of 2.9 and hyperglycemia with a glucose of 162 but her serum creatinine and other electrolytes were unremarkable. Liver functions were normal. TSH was found to be 0.28. She was admitted to the medical floor and placed on both the phenobarbital and Subutex taper. She was quite sleepy so the phenobarb taper was discontinued on 11/04/2023 with ongoing CIWA for monitoring. Her CIWA remained low and she required no further intervention with regards to alcohol withdrawal. She was maintained on the Subutex taper which was completed on the late afternoon of 11/05/2023. With regards to some of her lower extremity pain she was having a B12 was obtained and found to be low normal at 227. She was given IM B12 injection x 1 and placed on oral B12 1000 mg twice daily. A methylmalonic acid and homocystine level were pending at the time of discharge. I have asked her to follow-up with her primary care physician within the next month for reassessment and following up on those labs. She was evaluated by [facility] and the initial plan was to discharge to inpatient rehab at [facility] however no beds were available and she was able to obtain a bed at [facility] rehab facility. She was discharged on 11/05/2023 in stable condition to [facility]. Discharge diagnoses: Acute alcohol withdrawal-resolved Acute opiate withdrawal-resolved Methamphetamine abuse Hypokalemia-resolved Abnormal TSH secondary to euthyroid sick syndrome Tachycardia-resolved Elevated blood pressure Low normal B12 level--> MMA and homocystine level pending History of IVDU GERD PUD Tobacco abuse Physical Exam Const alert, oriented x3, no apparent distress, average body habitus and well nourished; Negative for healthy appearing Constitutional Narrative: Upper middle-aged, white female, sitting up in bed, eating breakfast and watching TV, appears comfortable, nontoxic, appears much older than stated age General Appearance: cooperative, comfortable, well kempt and well developed Orientation / Consciousness: awake, oriented to person, oriented to place and oriented to time Exam Limitations: no limitations HEENT normocephalic, head/scalp atraumatic, hearing grossly normal bilaterally, moist oral mucous membranes and oropharynx normal Eyes PERRL, EOMs intact bilaterally and conjunctivae normal Eyes Narrative: No scleral icterus Neck no lymphadenopathy and supple Neck Narrative: Trachea midline, no thyroid enlargement Resp normal respiratory effort, normal air movement, no retractions and no use of accessory muscles Resp Narrative: Diminished but clear Cardio regular rate, regular rhythm, S1 normal heart sound, S2 normal heart sound, no murmurs, no rub, no gallops and no clicks GI normal to inspection, nondistended, normoactive bowel sounds, soft to palpation and non-tender Extremity no clubbing, cyanosis or edema Neuro oriented x3, moves all extremities and no focal motor deficits Psych thought process normal and cooperative Psych Narrative: Much less tearful today, eye contact is improved, mood seems less depressed Weight / BMI Weight Weight: 76.7 kg Body Mass Index (BMI) 25.3 ABG / Lab / Microbiology Data 11/03/23 05:04 11/05/23 06:12 Laboratory: Laboratory Results - last 24 hr 11/04/23 11:26: POC Glucose 123 H 11/04/23 14:20: Vitamin B12 227 11/04/23 16:26: POC Glucose 171 H 11/04/23 20:41: POC Glucose 100 11/05/23 06:06: POC Glucose 93 11/05/23 06:12: Sodium 137, Potassium 3.9, Chloride 103, Carbon Dioxide 29.0, Anion Gap 5, BUN 7, Creatinine 0.53 L, Estim Creat Clear Calc 124.53, Est GFR (MDRD) Af Amer 152, Est GFR (MDRD) Non-Af 125, BUN/Creatinine Ratio 13.2, Glucose 92, Calcium 8.4 L, Phosphorus 3.5, Magnesium 2.2 D/C Instructions Discharge Diet: Low fat / Low cholesterol Discharge Activity: Return to Normal Activity Meaningful Use Info Meaningful Use Meaningful Use Diagnoses (Choose all that apply): None applicable Ischemic Stroke Statin Dosing Therapy Reference: STATIN DOSE THERAPY REFERENCE: * Patients > 75 years receive moderate or high dose statin therapy. * Patients 75 years or YOUNGER should receive HIGH intensity statin dose unless contraindicated. You will be required to document reason for non-treatment if statin daily dose does not meet guidelines. HIGH DOSE STATIN THERAPY DAILY Atorvastatin > than or = to 40 mg Rosuvastatin > than or = to 20 mg Amlodipine + Atorvastatin > than or = to 2.5/40 mg Ezetimibe + Simvastatin 10/80 mg Simvastatin 80mg Discharge Plan Admission Admit Date/Time: 11/02/23 18:16 Primary Reason for Your Visit: Alcohol/opiate detox Attending Provider: Karen Leiva Primary Care Provider: Jennifer Addison Consulting Providers: Arvind Granda; Rocio Grimaldo Discharge Orders/Prescriptions Prescriptions: New cyanocobalamin (vitamin B-12) 500 mcg Tablet 1,000 mcg PO BREAKFAST Qty: 120 0RF Discontinued pantoprazole 40 MG tablet 40 mg PO DAILY gabapentin 300 MG capsule 600 mg PO TID Patient Comments: Take 1 capsule by mouth daily at bedtime Referrals / Follow Up: Jennifer Addison MD [Primary Care Provider] - Within 1 Month (b12 Deficiency) Disposition Disposition (needs filled in before D/C Order can be placed): Inpatient Rehab Unit/Facility Charges/Coding Visit Charges Inpatient E&M: 68755 Disch Hosp
--- NOTE | 2023-11-05 11:49 | PHA.DC.MR.R ---
Pharmacy PA Med Reconciliation Pharmacy Service has performed discharge medication reconciliation for this patient. Patient going to inpatient rehab facility. Did not credit support counselor. The patient's discharge medication list was reviewed for discrepancies and discrepancies were resolved. Medications at Discharge Home Medications cyanocobalamin (vitamin B-12) 500 mcg tablet 1,000 mcg (2 x 500 mcg) PO BREAKFAST #120 tabs 11/05/23
--- NOTE | 2023-11-05 15:52 | CHAPLAIN ---
Type of Pastoral Visit _x__ Initial Visit ___ Follow-up Visit ___ On-call Visit ___ General Patient Visit ___ Spiritual Assessment ___ Family Conference ___ Bereavement ___ Rapid Response ___ Code Blue ___ Other (describe below) Pastoral Care Referral From _x__ Patient ___ Family ___ Nurse ___ Physician ___ Cruise Director ___ Leather Leveler ___ Other (describe below) Sacrament/Intervention ___ Active listening ___ Anointing ___ Rastafari ___ Bereavement ___ Communion ___ Emy exploration ___ ___ Life review ___ Prayer ___ Reconciliation ___ Sacrament of Sick _x__ Supportive presence ___ Wedding ___ Other (describe below) Pastoral Comments patient was collecting her things and was ready for discharge; pt wanted to leave rickey so she could smoke a cigarette; pt was escorted out by staff
== END 2023-11-05 12:30 | DRG 773 ==
LOC: ED 17:58 → MS3 18:06
PROVIDERS: Student in an Organized Health Care Education/Training Program; Admitting Provider Internal Medicine; Emergency Provider Emergency Medicine; PCP Internal Medicine; Visit Provider Internal Medicine
DX: F10.231 Alcohol dependence with withdrawal delirium (principal); F11.23 Opioid dependence with withdrawal; E07.81 Sick-euthyroid syndrome; E87.6 Hypokalemia; K21.9 Gastro-esophageal reflux disease without esophagitis; F17.210 Nicotine dependence, cigarettes, uncomplicated; E53.9 Vitamin B deficiency, unspecified; K27.9 Peptic ulcer, site unspecified, unspecified as acute or chronic, without hemorrhage or perforation; R73.9 Hyperglycemia, unspecified; Y90.9 Presence of alcohol in blood, level not specified; R03.0 Elevated blood-pressure reading, without diagnosis of hypertension
CPT/HCPCS: 36415; 80048; 80053; 80307; 80320; 81001; 82248; 82607; 82962; 83735; 84100; 84443; 85025; 85610; 97802; 99285; 99406; A4216; G0480; J3420

== ENCOUNTER 2023-12-09 17:54 | Emergency (ER) | payer MEDICAID, SELFPAY ==
[2023-12-09 17:55] VITALS: BP 136/76; PULSE 110; RESP 20; TEMP 36.1; O2SAT 94
[2023-12-09 17:57] VITALS: BMI 27.5
--- NOTE | 2023-12-09 19:14 | EDS_ITS ---
HPI History of Present Illness Chief Complaint: General Illness Informant: patient Narrative Narrative: Patient complains of redness and pain to both feet. She states symptoms been ongoing for 2 years but recently worsened. She complains of some tightness and redness of her right calf. She has not followed up with her primary care physician for quite some time. [facility] Medical History Alcohol abuse Opiate withdrawal Substance abuse Hepatitis Smoker Home Medications ?Medication ?Instructions ?Recorded ?Last Taken ?Type cyanocobalamin (vitamin B-12) 500 1,000 mcg (2 x 500 mcg) PO 11/05/23 Unknown Rx mcg tablet BREAKFAST #120 tabs cephalexin 500 mg capsule 500 mg PO Q6 #40 CAPSULES 12/09/23 Unknown Rx naproxen 500 mg tablet (Naprosyn) 500 mg PO BID PRN pain #20 tabs 12/09/23 Unknown Rx Allergy/AdvReac Type Severity Reaction Status Date / Time ibuprofen AdvReac BAD Verified 12/09/23 17:55 STOMACH Surgical History S/P clamping of cerebral aneurysm Social History Smoking Status: Current every day smoker tobacco type: cigarettes ROS ROS ED Constitutional Constitutional ED: Denies chills or fever(s) Eyes Eyes: Denies change in vision ENT ENT ED: Denies rhinorrhea or sore throat Cardiovascular Cardiovascular: Denies chest pain or palpitations Respiratory/Chest Respiratory/Chest: Denies cough or dyspnea Gastrointestinal Gastrointestinal: Denies abdominal pain or vomiting Musculoskeletal Musculoskeletal: Reports arthralgias and myalgias Integumentary Reports rash Neurologic Neurologic: Reports paresthesias Allergic/Immunologic Allergic/Immunologic ED: Denies mouth swelling or tongue swelling EXAM Physical Exam Const Vital Signs: 12/09/23 17:55 12/09/23 18:37 12/09/23 19:55 Temperature 97 F L Temperature Source Temporal Pulse Rate 110 H 76 Respiratory Rate 20 H 16 Respiratory Effort Normal Respiratory Pattern Normal Blood Pressure 136/76 H 132/76 H Blood Pressure Mean 96 94 Pulse Ox 94 99 Oxygen Delivery Method Room Air Room Air 12/09/23 20:45 Temperature 97.2 F L Temperature Source Pulse Rate 84 Respiratory Rate 16 Respiratory Effort Respiratory Pattern Blood Pressure 132/76 H Blood Pressure Mean 94 Pulse Ox 95 Oxygen Delivery Method Positive well nourished and well developed General Appearance ED: well developed HEENT Reports moist mucous membranes Eyes EOMs intact bilaterally Chest Wall inspection of chest normal and palpation of chest normal Resp normal respiratory effort and clear to auscultation bilaterally Cardio regular rate and regular rhythm GI non-tender Palpation: soft Extremity Extremity Narrative: Patient does have erythema of the right lower extremity with warmth compared to the left leg consistent with a cellulitis. She does have edema noted to the right calf as well. She has a large scar across her knee from a prior injury. She states typically she does not have right leg swelling. No open wounds noted on the feet. Neuro oriented x3 Motor Exam: strength 5/5 throughout Psych Mood & Affect: anxious MDM MDM MDM Narrative Medical decision making narrative: IV line initiated. Labwork obtained to evaluate for leukocytosis, anemia, and electrolyte derangement. Venous ultrasound of the right lower extremity obtained to rule out DVT. Patient given naproxen for pain. History & Record Review Discussion w/independent historian: Patient Lab Data Attestation: I reviewed the patient's lab results. Labs: Laboratory Results - last 24 hr 12/09/23 19:30 WBC 6.8 RBC 3.89 L Hgb 11.8 L Hct 37.1 MCV 95.4 MCH 30.3 MCHC 31.8 L RDW Std Deviation 46.5 H RDW Coeff of Tika 13.2 Plt Count 251 MPV 10.0 Immature Gran % (Auto) 0.300 Neut % (Auto) 47.0 Lymph % (Auto) 35.9 Villalba % (Auto) 14.4 H Eos % (Auto) 2.1 Baso % (Auto) 0.3 Absolute Neuts (auto) 3.2 Absolute Lymphs (auto) 2.45 Nucleated RBC % 0 Sodium 139 Potassium 3.7 Chloride 105 Carbon Dioxide 29.0 Anion Gap 5 BUN 7 Creatinine 0.70 Estim Creat Clear Calc 100.49 Est GFR (MDRD) Af Amer 111 Est GFR (MDRD) Non-Af 92 BUN/Creatinine Ratio 10.1 Glucose 102 Calcium 9.5 Radiography Diagnostic Testing: Clinical Impression(s) from Imaging Studies Venous Duplex 12/09/23 19:26 IMPRESSION: Normal venous Doppler ultrasound of the lower extremity. Electronically Signed: Tl Veronica MD at 20:18 EDT , Treatment and Re-Evaluation :: CBC was normal white count 6.8 with a hemoglobin 11.8. Differential is unremarkable. Chemistry studies normal. Venous ultrasound of the right lower extremity reveals no evidence of DVT. On repeat evaluation patient is sleeping comfortably. Patient does have erythema and swelling to the right lower extremity that is different when compared to the left. I will treat with a course of Keflex for cellulitis, although patient states this has been ongoing for quite some time and has normal labs. I did encourage her to follow with her primary care physician who she has not seen in quite some time. Discharge Plan Triage Chief Complaint: General Illness ED Provider: Tanya Carlson Dx/Rx/DC Orders Clinical Impression: Cellulitis Instructions: ED Cellulitis Prescriptions: New naproxen [Naprosyn] 500 mg tablet 500 mg PO BID PRN (Reason: pain) Qty: 20 0RF cephalexin 500 mg capsule 500 mg PO Q6 Qty: 40 0RF No Action cyanocobalamin (vitamin B-12) 500 mcg Tablet 1,000 mcg PO BREAKFAST Qty: 120 0RF Primary Care Provider: Jennifer Addison Referrals: Jennifer Addison MD [Primary Care Provider] - 1-2 Weeks Print Language: Greek Disposition Disposition: Home, Self Care Discharge Date/Time: 12/09/23 20:49
--- NOTE | 2023-12-09 19:26 | US_ITS ---
STUDY: VENOUS DOPPLER ULTRASOUND - RIGHT LOWER EXTREMITY REASON FOR EXAM: Female, 58 years old. RIGHT LEG SWELLING TECHNIQUE: Ultrasound evaluation of the deep vein system to include griffiths-scale imaging and compression was performed. Griffiths-scale imaging and Doppler sonographic evaluation, including duplex spectral analysis and qualitative color flow sonography, was performed. COMPARISON: None. FINDINGS: Common Femoral Vein: Normal compression, spontaneity and augmentation. Normal color Doppler. Common Femoral Vein/Greater Saphenous Junction: Normal compression, spontaneity and augmentation. Normal color Doppler. Deep Femoral Vein: Normal compression, spontaneity and augmentation. Normal color Doppler. Femoral Proximal: Normal compression, spontaneity and augmentation. Normal color Doppler. Femoral Middle: Normal compression, spontaneity and augmentation. Normal color Doppler. Femoral Distal: Normal compression, spontaneity and augmentation. Normal color Doppler. Popliteal Vein: Normal compression, spontaneity and augmentation. Normal color Doppler. Posterior Tibial Vein: Normal compression, spontaneity and augmentation. Normal color Doppler. Peroneal Vein: Normal compression, spontaneity and augmentation. Normal color Doppler. US/Venous Duplex Imag/Limited/Uni IMPRESSION: Normal venous Doppler ultrasound of the lower extremity. Electronically Signed: Tl Veronica MD at 20:18 EDT ,
[2023-12-09] MEDS: Naproxen 500 MG Tablet PO (19:28)
[2023-12-09 19:35] LABS: Absolute Lymphocyte Count 2.45 X10^3/uL (0.83-4.51); Absolute Neutrophil Count 3.2 X10^3/uL (2.0-7.7); Basophil# 0.02 X10^3/uL; Basophil% 0.3 % (0-1); Eosinophil# 0.14 X10^3/uL; Eosinophils% 2.1 % (0-5); Hematocrit 37.1 % (37-47); Hemoglobin 11.8 g/dL (12.0-15.0); Lymphocyte # 2.45 X10^3/ul (0.83-4.51); Lymphocyte % 35.9 % (19-41); Mean Corp Hgb Conc 31.8 g/dL (32-36); Mean Corpuscular Hgb 30.3 pg (27.0-32.0); Mean Corpuscular Volume 95.4 fL (81-99); Monocyte# 0.98 X10^3/uL; Monocyte% 14.4 % (0-10); NRBC Flagged by Analyzer 0 % (0-5); Neutrophil # 3.21 X10^3/uL (2.7-7.7); Platelet Count 251 K/mm3 (150-450); RBC Distribution Width CV 13.2 % (11.6-14.6); RBC Distribution Width SD 46.5 fl (35.1-43.9); Red Blood Count 3.89 M/mm3 (4.2-5.4); White Blood Count 6.8 K/mm3 (4.4-11.0)
[2023-12-09 19:54] LABS: Anion Gap 5 (5-15); BUN 7 mg/dL (7-18); BUN/Creat Ratio 10.1 RATIO (10-20); Calcium,Total 9.5 mg/dL (8.5-10.1); Chloride 105 mmol/L (98-107); EST Glomerular Filtration Rate 92 mL/min (>60); Est Glom Filt Rate - Afr Amer 111 mL/min (>60); Estimated Creatinine Clearance 100.49 ml/min; Glucose 102 mg/dL (74-106); Potassium 3.7 mmol/L (3.5-5.1); Sodium Level 139 mmol/L (136-145)
[2023-12-09 19:55] VITALS: BP 132/76; PULSE 76; RESP 16; O2SAT 99
[2023-12-09 20:45] VITALS: BP 132/76; PULSE 84; RESP 16; TEMP 36.2; O2SAT 95
[2023-12-09] MEDS: Cephalexin 250 MG Capsule 500 MG PO (20:48)
== END 2023-12-09 20:49 | disposition home or self-care (01) ==
PROVIDERS: Emergency Provider Emergency Medicine; PCP Internal Medicine; Visit Provider Emergency Medicine
DX: L03.115 Cellulitis of right lower limb (principal); M79.671 Pain in right foot; M79.672 Pain in left foot; R60.0 Localized edema; F17.210 Nicotine dependence, cigarettes, uncomplicated; Z79.899 Other long term (current) drug therapy
CPT/HCPCS: 80048; 85025; 93971; 99283; A4216

== ENCOUNTER 2023-12-12 02:52 | Emergency (ER) | payer MEDICAID, SELFPAY ==
[2023-12-12 02:53] VITALS: BP 137/86; PULSE 85; RESP 18; TEMP 36.8; O2SAT 98
--- NOTE | 2023-12-12 03:04 | CT_ITS ---
INDICATION: headache, H/O aneurysm clip EXAMINATION: CT BRAIN WITH AND WITHOUT CONTRAST - CTA Head WO/W Contrast Injection TECHNIQUE: Multiple axial images were obtained of the brain with and without IV contrast. Postcontrast images obtained with angiogram protocol with coronal sagittal 2-D and 3-D MIP reformats. A radiation dose optimization technique was used for this scan. IV Contrast dosage and agent: 75 mL [id number] COMPARISON: July 06, 2014. FINDINGS: BRAIN PARENCHYMA: Right supraclinoid aneurysm clips. The hardening artifact from the clips limits adjacent evaluation. No intra- or extra-axial hemorrhage. No evidence of acute infarct. No intracranial mass or mass effect. There is preservation of the ying/white matter interface. Posterior fossa structures are unremarkable. No abnormal contrast enhancement. Following administration of contrast no abnormal brain parenchymal or meningeal enhancement. No current aneurysm is appreciated. CSF SPACES: Appropriate for age. No hydrocephalus. Basal cisterns are patent. CALVARIUM, SKULL BASE, PARANASAL SINUSES AND MASTOID AIR CELLS: Prior right temporal craniotomy. Paranasal sinuses are grossly clear. Mastoid air cells are clear.. No discrete lytic or blastic abnormalities. ORBITS: Both globes, extraocular muscles, optic nerves and retrobulbar fat appear unremarkable. ASPECTS Score for Acute Strokes: 10 CT/CTA Head W/WO Contrast IMPRESSION: No CT evidence of acute intracranial hemorrhage or injury. Prior right temporal craniotomy with supraclinoid aneurysm clips. No evidence of recurrent intracranial aneurysm. Electronically Signed: Maximus Grider MD at 4:15 EDT ,
--- NOTE | 2023-12-12 03:06 | EDS_ITS ---
HPI History of Present Illness Chief Complaint: Headache Informant: patient Narrative Narrative: Patient presents secondary to headache that she states is been ongoing for the past couple of days. She denies recent fall or injury. 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 PFSH PFS Medical History Alcohol abuse Opiate withdrawal Substance abuse Hepatitis Smoker Home Medications ?Medication ?Instructions ?Recorded ?Last Taken ?Type NK 12/12/23 Unknown History Allergy/AdvReac Type Severity Reaction Status Date / Time ibuprofen AdvReac BAD Verified 12/12/23 02:53 STOMACH Surgical History S/P clamping of cerebral aneurysm Social History Smoking Status: Current every day smoker tobacco type: cigarettes ROS ROS ED Constitutional Constitutional ED: Denies chills or fever(s) Eyes Eyes: Denies change in vision ENT ENT ED: Denies rhinorrhea or sore throat Cardiovascular Cardiovascular: Denies chest pain Respiratory/Chest Respiratory/Chest: Denies cough or dyspnea Gastrointestinal Gastrointestinal: Denies abdominal pain, nausea or vomiting Genitourinary Genitourinary ED: Denies dysuria Musculoskeletal Musculoskeletal: Denies back pain or extremity pain Integumentary Denies Abrasions or rash Neurologic Neurologic: Reports headache(s); Denies weakness Psychiatric Psychiatric: Denies anxiety or depression Allergic/Immunologic Allergic/Immunologic ED: Denies lip swelling or urticaria EXAM Physical Exam Const Vital Signs: 12/12/23 02:53 Temperature 98.3 F Temperature Source Oral Pulse Rate 85 Respiratory Rate 18 Blood Pressure 137/86 H Blood Pressure Mean 103 Pulse Ox 98 Oxygen Delivery Method Room Air Positive well nourished and well developed General Appearance ED: well developed HEENT Reports moist mucous membranes Eyes EOMs intact bilaterally Chest Wall inspection of chest normal and palpation of chest normal Resp normal respiratory effort and clear to auscultation bilaterally Cardio regular rate and regular rhythm GI non-tender Palpation: soft Extremity normal to inspection Neuro Neuro Narrative: Patient alert and appropriate. No focal neurologic deficit. Psych Mood & Affect: anxious and tearful MDM MDM MDM Narrative Medical decision making narrative: Patient had blood work done 3 days ago that revealed normal renal function. IV line is established. She will be given fluids, Tylenol, Compazine, and Benadryl. CTA of the head will be obtained to evaluate for any acute intracranial abnormalities and stability of the aneurysm clip. Radiography Diagnostic Testing: Clinical Impression(s) from Imaging Studies Head CTA 12/12/23 03:04 IMPRESSION: No CT evidence of acute intracranial hemorrhage or injury. Prior right temporal craniotomy with supraclinoid aneurysm clips. No evidence of recurrent intracranial aneurysm. Electronically Signed: Maximus Grider MD at 4:15 EDT , Treatment and Re-Evaluation :: On repeat evaluation patient sleeping comfortably. She easily awakens. She states that she feels much improved. CT scan reveals no acute findings. Aneurysm clip is in place with no acute change. Patient be discharged home. Discharge Plan Triage Chief Complaint: Headache ED Provider: Tanya Carlson Dx/Rx/DC Orders Clinical Impression: Headache Instructions: ED, Migraine (Classical) Prescriptions: No Action NK Primary Care Provider: Jennifer Addison Referrals: Jennifer Addison MD [Primary Care Provider] - 1-2 Weeks Print Language: Icelandic Disposition Disposition: Home, Self Care
[2023-12-12] MEDS: proCHLORPERazine 10 MG/2 ML Vial IV (03:12)
[2023-12-12] MEDS: Acetaminophen 500 MG Tablet 1000 MG PO (03:12)
[2023-12-12] MEDS: DiphenhydrAMINE 50 MG/ML Syringe 25 MG IV (03:12)
[2023-12-12] MEDS: 0.9% Normal Saline (500mL Bag) 500 ML 1000 ML IV (03:15)
[2023-12-12 04:30] VITALS: BP 121/68; PULSE 97; RESP 14; TEMP 36.4; O2SAT 98
== END 2023-12-12 04:36 | disposition home or self-care (01) ==
PROVIDERS: Emergency Provider Emergency Medicine; PCP Internal Medicine; Visit Provider Emergency Medicine
DX: R51.9 Headache, unspecified (principal); F17.210 Nicotine dependence, cigarettes, uncomplicated; Z86.73 Personal history of transient ischemic attack (TIA), and cerebral infarction without residual deficits; Z95.828 Presence of other vascular implants and grafts
CPT/HCPCS: 70496; 96361; 96374; 96375; 99283; J7040; Q9967; A4216